=== PATIENT | female | born 1940 | race Caucasian/White ===

== ENCOUNTER 2025-02-13 20:01 | Inpatient (IN) | payer MEDICARE ==
[~2025-02-13] VITALS: Ht 170.2 cm; Wt 73.9 kg
[~2025-02-13 20:01] MED LIST: NITR100C15 PO
[2025-02-13] MEDS ORDERED: VANCOMYCIN 1 GM /D5W 250 ML PB IV ONE (20:18)
[2025-02-13] MEDS ORDERED: PIPERACI/TAZO 3.375GM/D5W 50ML PB IV ONE (20:19)
[2025-02-13 20:23] LABS: BASOPHILS % (AUTO) 0.1 % (0.0-2.0); HEMATOCRIT 43 % (33-45); HEMOGLOBIN 13.1 g/dL (11.5-14.8); LYMPHOCYTES # (AUTO) 1.1 K/uL (0.8-4.8); MEAN CORPUSCULAR HEMOGLOBIN 30 PG (26.0-33.0); MEAN CORPUSCULAR HGB CONC 30 g/dl (31.0-36.0); MEAN CORPUSCULAR VOLUME 98 fL (82-100); MONOCYTES # (AUTO) 1.2 K/uL (0.1-1.30); MONOCYTES % (AUTO) 6.5 % (2.0-12.0); NEUTROPHILS # (AUTO) 15.9 K/uL (1.8-8.9); NEUTROPHILS % (AUTO) 87.4 % (43.0-81.0); PLATELET COUNT (AUTO) 326 K/uL (150-450); RED BLOOD CELL COUNT(AUTO) 4.44 MIL/uL (4.0-5.2); RED CELL DISTRIBUTION WIDTH 18.2 % (11.5-15.0); WHITE BLOOD COUNT (AUTO) 18.2 K/uL (4.3-11.0)
[2025-02-13 20:32] LABS: CALCIUM, SERUM 10.3 mg/dL (8.5-10.1); CARBON DIOXIDE 12 mmol/L (21-32); CHLORIDE 113 mmol/L (98-107); GLUCOSE 239 mg/dL (74-106); POTASSIUM 5.8 mmol/L (3.5-5.1); SODIUM SERUM 155 mmol/L (136-145)
[2025-02-13] MEDS: IV NS 0.9% 1,000 ML BAG IV ONE ×2 (20:34→21:07)
[2025-02-13] MEDS: PIPERACILLIN /TAZOBACTAM 3.375 G in IV D5W 50 ML IV ONE (20:35)
[2025-02-13 20:40] LABS: ALANINE AMINOTRANSFERASE 46 U/L (12-78); ALKALINE PHOSPHATASE 114 U/L (46-116); ASPARTATE AMINOTRANSFERASE 33 U/L (15-37); BILIRUBIN,DIRECT 0.2 mg/dL (0.0-0.2); BILIRUBIN,TOTAL 0.4 mg/dL (0.2-1.0); TOTAL PROTEIN, SERUM 9.1 g/dL (6.4-8.2)
[2025-02-13 20:41] LABS: INR 1.11 (0.91-1.10); PARTIAL THROMBOPLASTIN TIME 21.3 SEC (24.3-34.3); PROTHROMBIN TIME 11.7 SECS (9.2-11.1)
[2025-02-13] MEDS: VANCOMYCIN 1 GM in IV D5W 250 ML IV ONE (20:45)
[2025-02-13 21:04] LABS: CREATININE 9.8 mg/dL (0.6-1.3)
[2025-02-13 21:09] LABS: UREA NITROGEN, BLOOD 209 mg/dL (7-18)
[2025-02-13 21:41] LABS: ABG BASE EXCESS -17.2 mmol/L (-2.0-3.0); ABG OXYGEN SATURATION 99.4 % (94.0-98.0); ABG PH 7.222 (7.350-7.450); ABG PO2 551.6 mmHg (83.0-108.0); ABG TOTAL HEMOGLOBIN 8.7 G/dL (12.0-16.0); COHb 0.1 % (0.5-1.5); MetHb 0.6 % (0.0-1.5); O2Hb 98.7 % (94.0-97.0); VT, ABG 450 mL
[2025-02-13] MEDS: ACETAMINOPHEN 650 MG/SUPP.RECT RC ONE (22:11)
[2025-02-13] MEDS ORDERED: ACETAMINOPHEN 650 MG/SUPP.RECT RC PRN (22:30)
[2025-02-13] MEDS ORDERED: Z GUARD REMEDY 4 OZ OINT TP PRN (22:30)
[2025-02-13] MEDS ORDERED: ONDANSETRON HCL/PF 4 MG/2 ML VIAL IVP PRN (22:30)
[2025-02-13 23:11] LABS: APPEARANCE,URINE CLOUDY (CLEAR); BILIRUBIN,URINE 1+ (NEGATIVE); BLOOD, URINE 3+ Ery/uL (NEGATIVE); COLOR,URINE DARK YELLOW (YELLOW); KETONES,URINE NEGATIVE (NEGATIVE); LEUKOCYTE ESTERASE ,URINE 2+ (NEGATIVE); NITRITE, URINE POSITIVE (NEGATIVE); PROTEIN,URINE 3+ mg/dl (NEGATIVE); UGLUCOSE TRACE mg/dL (NEGATIVE); UROBILINOGEN,URINE 0.2 EU/dL (0.2)
[2025-02-13 23:22] LABS: ADD URINE CULTURE YES; BACTERIA,URINE Moderate /HPF (None Seen); WBC,URINE TOO NUMEROUS TO COUN /HPF (0-3)
[2025-02-13 23:24] LABS: RBC,URINE 21-50 /HPF (0-2); SQUAMOUS EPITHELIAL CELL,UR Few /HPF (None Seen); YEAST,URINE Few /HPF (None Seen)
[2025-02-13 23:36] LABS: CALCIUM, SERUM 8.7 mg/dL (8.5-10.1); CHLORIDE 119 mmol/L (98-107); GLUCOSE 195 mg/dL (74-106); POTASSIUM 5.9 mmol/L (3.5-5.1); SODIUM SERUM 152 mmol/L (136-145)
[2025-02-14] VITALS (99 sets, daily range): BP systolic 71–143; BP diastolic 37–71; TEMP 96.5–98.3; O2SAT 92–100
[2025-02-14] MEDS: SODIUM BICARBONATE SYR 50 MEQ/50 ML DISP.SYRIN ONE ×2 (00:08→03:11)
[2025-02-14 00:13] LABS: CARBON DIOXIDE 7 mmol/L (21-32); CREATININE 8.8 mg/dL (0.6-1.3); UREA NITROGEN, BLOOD 172 mg/dL (7-18)
[2025-02-14] MEDS: Sodium Bicarbonate 100 MEQ in IV D5/0.45 NACL 1,000 ML IV PRN (00:47)
[2025-02-14] MEDS: IV NS 0.9% 250 ML IV PRN (00:53)
[2025-02-14] MEDS: MEROPENEM 1 G in IV NS 0.9% 100 ML IV ONE (00:56)
[2025-02-14] MEDS: PROPOFOL 100 ML IV PRN (01:00)
[2025-02-14] MEDS: MEROPENEM 500MG/NS 50 ML PB IV ONE (01:11)
[2025-02-14] MEDS: CALCIUM CHLORIDE 1,000 MG/10 ML DISP.SYRIN IV ONE (03:07)
[2025-02-14] MEDS: DEXTROSE 50%-WATER 50 ML DISP.SYRIN IV ONE (03:08)
[2025-02-14] MEDS: INSULIN REGULAR, HUMAN 100 UNIT/ML 10 ML VIAL IV ONE (03:10)
[2025-02-14] MEDS: SODIUM BICARBONATE SYR 50 MEQ/50 ML DISP.SYRIN IV ONE (03:11)
[2025-02-14] MEDS: SODIUM ZIRCONIUM CYCLOSILICATE 5 GM POWD.PACK ONE (03:11)
[2025-02-14] MEDS: SODIUM ZIRCONIUM CYCLOSILICATE 5 GM POWD.PACK NG ONE (03:12)
[2025-02-14] MEDS: DEXTROSE 50%-WATER 50 ML DISP.SYRIN ONE (03:15)
[2025-02-14 06:18] LABS: ABG BASE EXCESS -6.3 mmol/L (-2.0-3.0); ABG OXYGEN SATURATION 96.4 % (94.0-98.0); ABG PCO2 25.8 mmHg (32.0-45.0); ABG PH 7.429 (7.350-7.450); ABG PO2 88.9 mmHg (83.0-108.0); ABG TOTAL HEMOGLOBIN 10.8 G/dL (12.0-16.0); COHb 0.3 % (0.5-1.5); MetHb 0.3 % (0.0-1.5); O2Hb 95.8 % (94.0-97.0); PEEP,BG 5 cm H2O; SITE, ABG LEFT RADIAL; VT, ABG 450 mL
[2025-02-14 07:16] LABS: BASOPHILS # (AUTO) 0.1 K/uL (0.0-0.2); BASOPHILS % (AUTO) 0.3 % (0.0-2.0); HEMATOCRIT 32 % (33-45); LYMPHOCYTES # (AUTO) 1.4 K/uL (0.8-4.8); LYMPHOCYTES % (AUTO) 7.9 % (20.0-44.0); MEAN CORPUSCULAR HEMOGLOBIN 29 PG (26.0-33.0); MEAN CORPUSCULAR HGB CONC 31 g/dl (31.0-36.0); MEAN CORPUSCULAR VOLUME 93 fL (82-100); MONOCYTES # (AUTO) 0.9 K/uL (0.1-1.30); MONOCYTES % (AUTO) 4.8 % (2.0-12.0); NEUTROPHILS # (AUTO) 15.4 K/uL (1.8-8.9); PLATELET COUNT (AUTO) 211 K/uL (150-450); RED BLOOD CELL COUNT(AUTO) 3.48 MIL/uL (4.0-5.2); RED CELL DISTRIBUTION WIDTH 17.4 % (11.5-15.0); WHITE BLOOD COUNT (AUTO) 17.7 K/uL (4.3-11.0)
[2025-02-14 07:36] LABS: CALCIUM, SERUM 9.4 mg/dL (8.5-10.1); CARBON DIOXIDE 20 mmol/L (21-32); CHLORIDE 121 mmol/L (98-107); GLUCOSE 325 mg/dL (74-106); MAGNESIUM 2.4 mg/dL (1.8-2.4); PHOSPHORUS 4.8 mg/dL (2.5-4.9); POTASSIUM 3.4 mmol/L (3.5-5.1)
[2025-02-14 08:20] LABS: CREATININE 7.9 mg/dL (0.6-1.3); SODIUM SERUM 160 mmol/L (136-145); UREA NITROGEN, BLOOD 167 mg/dL (7-18)
[2025-02-14] MEDS: PANTOPRAZOLE 40 MG VIAL IV SCH ×2 (10:06→21:24)
[2025-02-14] MEDS: Sodium Bicarbonate 100 MEQ in IV D5/0.45 NACL 1,000 ML IV SCH (10:48)
[2025-02-14] MEDS: IV 1/2NS 1000 ML 1,000 ML IV PRN (11:22)
[2025-02-14] MEDS ORDERED: NOREPINEPHRINE 32 MG in IV NS 0.9% 218 ML IV PRN (11:30)
[2025-02-14] MEDS: NOREPINEPHRINE 8 MG in IV D5W 242 ML IV PRN (12:38)
[2025-02-14 13:38] LABS: URINE TOTAL PROTEIN 137.2 mg/dL (0-11.9)
[2025-02-14 13:39] LABS: APPEARANCE,URINE SLIGHTLY CLOUDY (CLEAR); BILIRUBIN,URINE NEGATIVE (NEGATIVE); BLOOD, URINE 3+ Ery/uL (NEGATIVE); COLOR,URINE YELLOW (YELLOW); KETONES,URINE NEGATIVE (NEGATIVE); LEUKOCYTE ESTERASE ,URINE 2+ (NEGATIVE); NITRITE, URINE NEGATIVE (NEGATIVE); PROTEIN,URINE 2+ mg/dl (NEGATIVE); UGLUCOSE NEGATIVE (NEGATIVE); UROBILINOGEN,URINE 0.2 EU/dL (0.2)
[2025-02-14 14:06] LABS: ADD URINE CULTURE YES; BACTERIA,URINE 1+ /HPF (None Seen); RBC,URINE 81-100 /HPF (0-2); SQUAMOUS EPITHELIAL CELL,UR 0-2 /HPF (None Seen); WBC,URINE 21-50 /HPF (0-3)
[2025-02-14 14:07] LABS: YEAST,URINE Hyphal filaments /HPF (None Seen)
[2025-02-14 14:27] LABS: EOSINOPHIL,URINE None Seen
[2025-02-14] MEDS: MEROPENEM 1 G in IV NS 0.9% 100 ML IV SCH (23:13)
[2025-02-15] VITALS (87 sets, daily range): BP systolic 94–151; BP diastolic 36–74; TEMP 96.7–98; O2SAT 81–100
[2025-02-15 05:47] LABS: BASOPHILS % (AUTO) 0.1 % (0.0-2.0); EOSINOPHILS # (AUTO) 0.1 K/uL (0.0-0.7); EOSINOPHILS % (AUTO) 0.2 % (0.0-6.0); HEMATOCRIT 27 % (33-45); HEMOGLOBIN 8.4 g/dL (11.5-14.8); LYMPHOCYTES # (AUTO) 2.3 K/uL (0.8-4.8); LYMPHOCYTES % (AUTO) 8.3 % (20.0-44.0); MEAN CORPUSCULAR HEMOGLOBIN 29 PG (26.0-33.0); MEAN CORPUSCULAR HGB CONC 32 g/dl (31.0-36.0); MEAN CORPUSCULAR VOLUME 92 fL (82-100); MONOCYTES # (AUTO) 1.5 K/uL (0.1-1.30); MONOCYTES % (AUTO) 5.6 % (2.0-12.0); NEUTROPHILS # (AUTO) 23.1 K/uL (1.8-8.9); NEUTROPHILS % (AUTO) 85.8 % (43.0-81.0); PLATELET COUNT (AUTO) 182 K/uL (150-450); RED BLOOD CELL COUNT(AUTO) 2.88 MIL/uL (4.0-5.2); RED CELL DISTRIBUTION WIDTH 17.1 % (11.5-15.0)
[2025-02-15 06:27] LABS: ALBUMIN 1.9 g/dL (3.4-5.0); BILIRUBIN,TOTAL 0.4 mg/dL (0.2-1.0); CALCIUM, SERUM 8.3 mg/dL (8.5-10.1); CREATININE 6.5 mg/dL (0.6-1.3); MAGNESIUM 1.9 mg/dL (1.8-2.4); PHOSPHORUS 4.1 mg/dL (2.5-4.9); POTASSIUM 3.1 mmol/L (3.5-5.1); TOTAL PROTEIN, SERUM 5.8 g/dL (6.4-8.2)
[2025-02-15 07:15] LABS: OCCULT BLOOD STOOL POSITIVE (NEGATIVE)
[2025-02-15] MEDS: LEVOTHYROXINE INJ 100 MCG VIAL IV SCH (08:23)
[2025-02-15] MEDS ORDERED: LEVO88TA5 PO (12:46)
[2025-02-15] MEDS ORDERED: OMEP20CA15 PO (12:46)
[2025-02-15] MEDS ORDERED: ESCI10TA PO (12:46)
[2025-02-15] MEDS ORDERED: FERR325T23 PO (12:46)
[2025-02-15] MEDS ORDERED: ATOR40TA PO (12:46)
[2025-02-15] MEDS ORDERED: GABA-532 PO (12:46)
[2025-02-15] MEDS ORDERED: CLOP75TA15 PO (12:46)
[2025-02-15] MEDS ORDERED: CALC-261 PO (12:46)
[2025-02-15] MEDS ORDERED: AMLO-212 PO (12:46)
[2025-02-15] MEDS ORDERED: MEMA10TA PO (12:46)
[2025-02-15 15:11] LABS: HIV-1 p24 ANTIGEN NON REACTIVE (NONREACTIVE); HIV-1/2 ANTIBODY NON REACTIVE (NONREACTIVE)
[2025-02-15] MEDS: MEMANTINE HCL 5 MG TABLET PO SCH (17:01)
[2025-02-15] MEDS: ALBUMIN 25% 25 GM in PREMIX 1 EA IV PRN (18:02)
[2025-02-15] MEDS ORDERED: INSULIN REGULAR, HUMAN 100 UNIT/ML 3 ML VIAL SQ PRN (19:00)
[2025-02-15] MEDS ORDERED: DEXTROSE 50%-WATER 50 ML DISP.SYRIN IV PRN (19:00)
[2025-02-15] MEDS: BLOOD SUGAR DIAGNOSTIC 1 EACH STRIP IN SCH (19:15)
[2025-02-15] MEDS: VANCOMYCIN POST DIALYSIS 500MG IV PRN (21:01)
[2025-02-15] MEDS: MUPIROCIN OINT 2% 22 GM TUBE NS SCH (21:37)
[2025-02-16] VITALS (38 sets, daily range): BP systolic 90–137; BP diastolic 36–52; TEMP 97–99.5; O2SAT 93–98
[2025-02-16] MEDS: DEXTROSE 50%-WATER 50 ML DISP.SYRIN IV PRN (03:22)
[2025-02-16] MEDS: IV D5/0.45 NACL 1,000 ML IV PRN (03:29)
[2025-02-16 04:11] LABS: HEPATITIS B SURFACE AB (QUAL) Non Reactive (.)
[2025-02-16] MEDS: BLOOD SUGAR DIAGNOSTIC 1 EACH STRIP IN SCH (06:36)
[2025-02-16 08:31] LABS: ALBUMIN 2.3 g/dL (3.4-5.0); BILIRUBIN,TOTAL 0.5 mg/dL (0.2-1.0); CALCIUM, SERUM 7.6 mg/dL (8.5-10.1); CREATININE 3.4 mg/dL (0.6-1.3); POTASSIUM 3.1 mmol/L (3.5-5.1); TOTAL PROTEIN, SERUM 5.9 g/dL (6.4-8.2)
[2025-02-16] MEDS: FERROUS SULFATE (325 MG) 325 MG/TAB TABLET PO SCH (08:32)
[2025-02-16] MEDS: CALCIUM CARB 250MG /VITAMIN D 1 UDTAB PO SCH (09:01)
[2025-02-16] MEDS: POTASSIUM CL. PREMIX PERIPHER. 50 ML IV SCH (10:25)
[2025-02-16 15:23] LABS: HEMATOCRIT 21 % (33-45); RED BLOOD CELL COUNT(AUTO) 2.34 MIL/uL (4.0-5.2); WHITE BLOOD COUNT (AUTO) 27.9 K/uL (4.3-11.0)
[2025-02-16 15:24] LABS: BASOPHILS % (AUTO) 0.3 % (0.0-2.0); EOSINOPHILS % (AUTO) 0.6 % (0.0-6.0); LYMPHOCYTES % (AUTO) 7.1 % (20.0-44.0); MEAN CORPUSCULAR HEMOGLOBIN 29 PG (26.0-33.0); MEAN CORPUSCULAR HGB CONC 32 g/dl (31.0-36.0); MEAN CORPUSCULAR VOLUME 90 fL (82-100); MONOCYTES % (AUTO) 3.2 % (2.0-12.0); NEUTROPHILS % (AUTO) 88.8 % (43.0-81.0); PLATELET COUNT (AUTO) 126 K/uL (150-450)
[2025-02-16 15:26] LABS: HEMOGLOBIN 6.7 g/dL (11.5-14.8)
[2025-02-16 16:08] LABS: PTH, INTACT 160 pg/mL (15-65)
[2025-02-16 16:25] LABS: BAND % (MANUAL) 4 % (0.0-5.0); EOSINOPHILS % (MANUAL) 0 % (0-4); LYMPHOCYTES % (MANUAL) 3 % (16-48); MONOCYTES % (MANUAL) 0 % (0-11.0); NEUTROPHILS % (MANUAL) 92 (42-76); PLATELET ESTIMATE DECREASED; REACTIVE LYMPHOCYTES 1 % (0-0)
[2025-02-16 16:26] LABS: ANISOCYTOSIS 1+
[2025-02-16] MEDS ORDERED: BLOOD SUGAR DIAGNOSTIC 1 EACH STRIP IN SCH ×2 (18:00→18:39)
[2025-02-16] MEDS: ACETAMINOPHEN 650 MG/20.3 ML UDC NG PRN (23:28)
[2025-02-17] VITALS (40 sets, daily range): BP systolic 94–203; BP diastolic 41–60; TEMP 98–101.4; O2SAT 96–100
[2025-02-17 07:20] LABS: BASOPHILS % (AUTO) 0.2 % (0.0-2.0); EOSINOPHILS # (AUTO) 0.4 K/uL (0.0-0.7); EOSINOPHILS % (AUTO) 1.6 % (0.0-6.0); HEMATOCRIT 27 % (33-45); HEMOGLOBIN 8.9 g/dL (11.5-14.8); LYMPHOCYTES # (AUTO) 1.5 K/uL (0.8-4.8); LYMPHOCYTES % (AUTO) 6.4 % (20.0-44.0); MEAN CORPUSCULAR HEMOGLOBIN 30 PG (26.0-33.0); MEAN CORPUSCULAR HGB CONC 34 g/dl (31.0-36.0); MEAN CORPUSCULAR VOLUME 90 fL (82-100); MONOCYTES # (AUTO) 0.8 K/uL (0.1-1.30); MONOCYTES % (AUTO) 3.6 % (2.0-12.0); NEUTROPHILS # (AUTO) 20.4 K/uL (1.8-8.9); NEUTROPHILS % (AUTO) 88.2 % (43.0-81.0); PLATELET COUNT (AUTO) 134 K/uL (150-450); RED BLOOD CELL COUNT(AUTO) 2.95 MIL/uL (4.0-5.2); RED CELL DISTRIBUTION WIDTH 15.5 % (11.5-15.0); WHITE BLOOD COUNT (AUTO) 23.1 K/uL (4.3-11.0)
[2025-02-17 07:58] LABS: ALBUMIN 1.9 g/dL (3.4-5.0); BILIRUBIN,TOTAL 0.6 mg/dL (0.2-1.0); CALCIUM, SERUM 7.2 mg/dL (8.5-10.1); CREATININE 2.4 mg/dL (0.6-1.3); MAGNESIUM 1.5 mg/dL (1.8-2.4); PHOSPHORUS 2.6 mg/dL (2.5-4.9); TOTAL PROTEIN, SERUM 5.4 g/dL (6.4-8.2)
[2025-02-17 08:11] LABS: IRON, SERUM 8 ug/dl (50-175); TOTAL IRON BINDING CAPACITY 79 ug/dl (250-450)
[2025-02-17 08:49] LABS: FERRITIN 2771 ng/mL (8-388)
[2025-02-17] MEDS: LEVOTHYROXINE SODIUM 100 MCG TABLET PO SCH (09:05)
[2025-02-17] MEDS: MAGNESIUM OXIDE 400 MG TABLET PO ONE (09:22)
[2025-02-17] MEDS: POTASSIUM CHLORIDE 20 MEQ TAB.PRT.SR PO SCH ×2 (09:25→12:56)
[2025-02-17 10:14] LABS: LYMPHOCYTES % (MANUAL) 5 % (16-48); MONOCYTES % (MANUAL) 3 % (0-11.0); NEUTROPHILS % (MANUAL) 92 (42-76)
[2025-02-17 10:15] LABS: PLATELET ESTIMATE DECREASED
[2025-02-18] VITALS (39 sets, daily range): BP systolic 101–179; BP diastolic 37–58; TEMP 97.7–99; O2SAT 95–100
[2025-02-18 04:35] LABS: BASOPHILS % (AUTO) 0.1 % (0.0-2.0); EOSINOPHILS # (AUTO) 0.6 K/uL (0.0-0.7); EOSINOPHILS % (AUTO) 3.6 % (0.0-6.0); HEMATOCRIT 25 % (33-45); HEMOGLOBIN 8.3 g/dL (11.5-14.8); LYMPHOCYTES # (AUTO) 1.4 K/uL (0.8-4.8); LYMPHOCYTES % (AUTO) 8.2 % (20.0-44.0); MEAN CORPUSCULAR HEMOGLOBIN 30 PG (26.0-33.0); MEAN CORPUSCULAR HGB CONC 33 g/dl (31.0-36.0); MEAN CORPUSCULAR VOLUME 91 fL (82-100); MONOCYTES % (AUTO) 5.9 % (2.0-12.0); NEUTROPHILS # (AUTO) 14.3 K/uL (1.8-8.9); NEUTROPHILS % (AUTO) 82.2 % (43.0-81.0); PLATELET COUNT (AUTO) 132 K/uL (150-450); RED BLOOD CELL COUNT(AUTO) 2.78 MIL/uL (4.0-5.2); RED CELL DISTRIBUTION WIDTH 16.1 % (11.5-15.0); WHITE BLOOD COUNT (AUTO) 17.4 K/uL (4.3-11.0)
[2025-02-18 04:45] LABS: CALCIUM, SERUM 6.9 mg/dL (8.5-10.1); CARBON DIOXIDE 25 mmol/L (21-32); CHLORIDE 108 mmol/L (98-107); CREATININE 2.4 mg/dL (0.6-1.3); GLUCOSE 89 mg/dL (74-106); MAGNESIUM 1.3 mg/dL (1.8-2.4); PHOSPHORUS 2.5 mg/dL (2.5-4.9); POTASSIUM 2.9 mmol/L (3.5-5.1); SODIUM SERUM 140 mmol/L (136-145); UREA NITROGEN, BLOOD 23 mg/dL (7-18)
[2025-02-18 06:07] LABS: HEPATITIS B SURFACE AB (QUAL) Non Reactive (.)
[2025-02-18] MEDS: Magnesium 1GM/D5W 100ML PREMIX 100 ML IV SCH (08:10)
[2025-02-18 08:12] LABS: COMPLEMENT C3, SERUM 92 mg/dL (82-167); COMPLEMENT C4, SERUM 15 mg/dL (12-38)
[2025-02-18] MEDS: POTASSIUM CL. PREMIX PERIPHER. 50 ML IV SCH ×2 (08:48→18:50)
[2025-02-18 12:12] LABS: *SPE A/G RATIO 0.6 (0.7-1.7); *SPE ALBUMIN 1.9 g/dL (2.9-4.4); *SPE ALPHA-1-GLOBULIN 0.4 g/dL (0.0-0.4); *SPE ALPHA-2-GLOBULIN 1.1 g/dL (0.4-1.0); *SPE BETA GLOBULIN 0.9 g/dL (0.7-1.3); *SPE GLOBULIN, TOTAL 3.3 g/dL (2.2-3.9); *SPE M-SPIKE Not Observed g/dL (Not Observed); *SPE PROTEIN TOTAL 5.2 g/dL (6.0-8.5); *SPEGAMMA GLOBULIN 0.9 g/dL (0.4-1.8)
[2025-02-18] MEDS: VANCOMYCIN 500 MG in IV D5W 100ml IV ONE (13:42)
[2025-02-18 15:57] LABS: CALCIUM, SERUM 7.1 mg/dL (8.5-10.1); CREATININE 2.4 mg/dL (0.6-1.3); MAGNESIUM 2.7 mg/dL (1.8-2.4); POTASSIUM 3.2 mmol/L (3.5-5.1)
[2025-02-18] MEDS: LORAZEPAM INJ 2 MG/ML VIAL IV PRN (16:33)
[2025-02-18] MEDS: CEFEPIME 2 GM in IV D5W 100 ML IV SCH (16:33)
[2025-02-18 17:10] LABS: *ANA ANTI-CENTROMERE B AB <0.2 AI (0.0-0.9); *ANA ANTI-DNA(DS) AB, QN <1 IU/mL (0-9); *ANA ANTI-JO-1 <0.2 AI (0.0-0.9); *ANA ANTICHROMATIN ANTIBODY <0.2 AI (0.0-0.9); *ANA RNP ANTIBODIES <0.2 AI (0.0-0.9); *ANA SJOGREN'S ANTI-SS-A <0.2 AI (0.0-0.9); *ANA SJOGREN'S ANTI-SS-B <0.2 AI (0.0-0.9); *ANAANTI-SCLERODERMA-70 AB <0.2 AI (0.0-0.9); *ANASMITH AB <0.2 AI (0.0-0.9)
[2025-02-19] VITALS (48 sets, daily range): BP systolic 87–201; BP diastolic 40–82; TEMP 98–98.7; O2SAT 95–100
[2025-02-19 04:26] LABS: BASOPHILS # (AUTO) 0.1 K/uL (0.0-0.2); BASOPHILS % (AUTO) 0.4 % (0.0-2.0); EOSINOPHILS # (AUTO) 0.6 K/uL (0.0-0.7); EOSINOPHILS % (AUTO) 5.2 % (0.0-6.0); HEMATOCRIT 25 % (33-45); HEMOGLOBIN 8.3 g/dL (11.5-14.8); LYMPHOCYTES # (AUTO) 1.5 K/uL (0.8-4.8); LYMPHOCYTES % (AUTO) 12.7 % (20.0-44.0); MEAN CORPUSCULAR HEMOGLOBIN 30 PG (26.0-33.0); MEAN CORPUSCULAR HGB CONC 33 g/dl (31.0-36.0); MEAN CORPUSCULAR VOLUME 91 fL (82-100); MONOCYTES # (AUTO) 0.5 K/uL (0.1-1.30); MONOCYTES % (AUTO) 4.3 % (2.0-12.0); NEUTROPHILS # (AUTO) 9.4 K/uL (1.8-8.9); NEUTROPHILS % (AUTO) 77.4 % (43.0-81.0); PLATELET COUNT (AUTO) 163 K/uL (150-450); RED BLOOD CELL COUNT(AUTO) 2.79 MIL/uL (4.0-5.2); RED CELL DISTRIBUTION WIDTH 15.7 % (11.5-15.0); WHITE BLOOD COUNT (AUTO) 12.2 K/uL (4.3-11.0)
[2025-02-19 04:43] LABS: CALCIUM, SERUM 7.1 mg/dL (8.5-10.1); CREATININE 2.2 mg/dL (0.6-1.3); POTASSIUM 3.3 mmol/L (3.5-5.1)
[2025-02-19 04:44] LABS: MAGNESIUM 2.5 mg/dL (1.8-2.4); PHOSPHORUS 2.4 mg/dL (2.5-4.9)
[2025-02-19 04:50] LABS: INR 0.99 (0.91-1.10); PARTIAL THROMBOPLASTIN TIME 27.5 SEC (24.3-34.3); PROTHROMBIN TIME 10.5 SECS (9.2-11.1)
[2025-02-19] MEDS: POTASSIUM CL. PREMIX PERIPHER. 50 ML IV SCH (09:10)
[2025-02-19] MEDS: VANCOMYCIN 1 GM in IV D5W 250ml IV ONE (12:47)
[2025-02-19] MEDS: Sodium Phosphate 15 MMOL in IV NS 0.9% 245 ML IV ONE (15:55)
[2025-02-20] VITALS (36 sets, daily range): BP systolic 99–184; BP diastolic 43–129; TEMP 97.9–98.9; O2SAT 94–100
[2025-02-20 04:24] LABS: BASOPHILS # (AUTO) 0.1 K/uL (0.0-0.2); BASOPHILS % (AUTO) 0.7 % (0.0-2.0); EOSINOPHILS # (AUTO) 0.6 K/uL (0.0-0.7); EOSINOPHILS % (AUTO) 5.5 % (0.0-6.0); HEMATOCRIT 27 % (33-45); HEMOGLOBIN 8.6 g/dL (11.5-14.8); LYMPHOCYTES # (AUTO) 1.5 K/uL (0.8-4.8); LYMPHOCYTES % (AUTO) 13.4 % (20.0-44.0); MEAN CORPUSCULAR HEMOGLOBIN 29 PG (26.0-33.0); MEAN CORPUSCULAR HGB CONC 32 g/dl (31.0-36.0); MEAN CORPUSCULAR VOLUME 91 fL (82-100); MONOCYTES # (AUTO) 0.6 K/uL (0.1-1.30); NEUTROPHILS # (AUTO) 8.4 K/uL (1.8-8.9); NEUTROPHILS % (AUTO) 75.4 % (43.0-81.0); PLATELET COUNT (AUTO) 189 K/uL (150-450); RED BLOOD CELL COUNT(AUTO) 2.97 MIL/uL (4.0-5.2); RED CELL DISTRIBUTION WIDTH 15.5 % (11.5-15.0); WHITE BLOOD COUNT (AUTO) 11.1 K/uL (4.3-11.0)
[2025-02-20 04:45] LABS: ALBUMIN 1.6 g/dL (3.4-5.0); BILIRUBIN,TOTAL 0.4 mg/dL (0.2-1.0); CALCIUM, SERUM 7.2 mg/dL (8.5-10.1); CREATININE 2.1 mg/dL (0.6-1.3); MAGNESIUM 1.8 mg/dL (1.8-2.4); POTASSIUM 3.1 mmol/L (3.5-5.1); TOTAL PROTEIN, SERUM 5.2 g/dL (6.4-8.2)
[2025-02-20] MEDS: hydrALAZINE HCL IV 20 MG VIAL IV PRN (06:21)
[2025-02-20] MEDS: MIDAZOLAM HCL 2 MG/2ML VIAL IV PRN (08:44)
[2025-02-20] MEDS: FENTANYL PF 100MCG/2ML AMPUL IV PRN (08:45)
[2025-02-20] MEDS: VECURONIUM 10 MG VIAL IV PRN (08:45)
[2025-02-20] MEDS: POTASSIUM CHLORIDE 10 MEQ TABLET.SA PO ONE (09:30)
[2025-02-20] MEDS ORDERED: PHARMACY TO CHANGE PO MEDS TO GT/NG XX PRN (09:30)
[2025-02-20] MEDS: POTASSIUM CHLORIDE 20 MEQ POWDER PACKET GT ONE (09:42)
[2025-02-20] MEDS: MEMANTINE HCL 5 MG TABLET GT SCH (16:41)
[2025-02-20] MEDS: GLUCERNA 1.2 1,000 ML BOTTLE NG PRN (16:53)
[2025-02-20] MEDS ORDERED: DEXTROSE 50%-WATER 50 ML DISP.SYRIN IV PRN (21:00)
[2025-02-20] MEDS: BLOOD SUGAR DIAGNOSTIC 1 EACH STRIP IN SCH (23:38)
[2025-02-20] MEDS: INSULIN REGULAR, HUMAN 100 UNIT/ML 3 ML VIAL SQ PRN (23:38)
[2025-02-21] VITALS (16 sets, daily range): BP systolic 117–187; BP diastolic 42–109; TEMP 98–99.3; O2SAT 96–99
[2025-02-21 04:17] LABS: BASOPHILS # (AUTO) 0.1 K/uL (0.0-0.2); BASOPHILS % (AUTO) 0.5 % (0.0-2.0); EOSINOPHILS # (AUTO) 0.6 K/uL (0.0-0.7); EOSINOPHILS % (AUTO) 3.8 % (0.0-6.0); HEMATOCRIT 27 % (33-45); HEMOGLOBIN 8.8 g/dL (11.5-14.8); LYMPHOCYTES # (AUTO) 1.5 K/uL (0.8-4.8); MEAN CORPUSCULAR HEMOGLOBIN 30 PG (26.0-33.0); MEAN CORPUSCULAR HGB CONC 33 g/dl (31.0-36.0); MEAN CORPUSCULAR VOLUME 91 fL (82-100); MONOCYTES # (AUTO) 0.7 K/uL (0.1-1.30); MONOCYTES % (AUTO) 4.4 % (2.0-12.0); NEUTROPHILS % (AUTO) 81.3 % (43.0-81.0); PLATELET COUNT (AUTO) 219 K/uL (150-450); RED BLOOD CELL COUNT(AUTO) 2.97 MIL/uL (4.0-5.2); RED CELL DISTRIBUTION WIDTH 15.9 % (11.5-15.0); WHITE BLOOD COUNT (AUTO) 14.8 K/uL (4.3-11.0)
[2025-02-21 04:37] LABS: CALCIUM, SERUM 7.4 mg/dL (8.5-10.1); CREATININE 2.1 mg/dL (0.6-1.3); MAGNESIUM 1.7 mg/dL (1.8-2.4); PHOSPHORUS 3.8 mg/dL (2.5-4.9); POTASSIUM 3.3 mmol/L (3.5-5.1)
[2025-02-21] MEDS: LEVOTHYROXINE SODIUM 100 MCG TABLET GT SCH (08:38)
[2025-02-21] MEDS: CALCIUM CARB 250MG /VITAMIN D 1 UDTAB GT SCH (08:39)
[2025-02-21] MEDS: FERROUS SULFATE (325 MG) 325 MG/TAB TABLET GT SCH (08:39)
[2025-02-21] MEDS: PANTOPRAZOLE 40 MG/PACK PACK GT SCH (08:39)
[2025-02-21] MEDS: POTASSIUM CHLORIDE 20 MEQ POWDER PACKET GT ONE (09:34)
[2025-02-21] MEDS: MAGNESIUM OXIDE 400 MG TABLET GT ONE (09:34)
[2025-02-22] VITALS: BP 163/66; TEMP 99; O2SAT 99
[2025-02-22 04:00] VITALS: BP 163/63; TEMP 98.4; O2SAT 99
[2025-02-22 06:55] LABS: CALCIUM, SERUM 7.8 mg/dL (8.5-10.1); CREATININE 1.9 mg/dL (0.6-1.3); MAGNESIUM 1.5 mg/dL (1.8-2.4); POTASSIUM 3.4 mmol/L (3.5-5.1)
[2025-02-22 07:23] LABS: BASOPHILS # (AUTO) 0.1 K/uL (0.0-0.2); BASOPHILS % (AUTO) 0.7 % (0.0-2.0); EOSINOPHILS # (AUTO) 0.5 K/uL (0.0-0.7); EOSINOPHILS % (AUTO) 3.8 % (0.0-6.0); HEMATOCRIT 24 % (33-45); LYMPHOCYTES # (AUTO) 1.3 K/uL (0.8-4.8); LYMPHOCYTES % (AUTO) 10.3 % (20.0-44.0); MEAN CORPUSCULAR HEMOGLOBIN 30 PG (26.0-33.0); MEAN CORPUSCULAR HGB CONC 33 g/dl (31.0-36.0); MEAN CORPUSCULAR VOLUME 91 fL (82-100); MONOCYTES # (AUTO) 0.6 K/uL (0.1-1.30); MONOCYTES % (AUTO) 4.7 % (2.0-12.0); NEUTROPHILS # (AUTO) 10.1 K/uL (1.8-8.9); NEUTROPHILS % (AUTO) 80.5 % (43.0-81.0); PLATELET COUNT (AUTO) 226 K/uL (150-450); RED BLOOD CELL COUNT(AUTO) 2.67 MIL/uL (4.0-5.2); RED CELL DISTRIBUTION WIDTH 15.6 % (11.5-15.0); WHITE BLOOD COUNT (AUTO) 12.6 K/uL (4.3-11.0)
[2025-02-22 08:00] VITALS: BP 138/54; TEMP 99; O2SAT 99
[2025-02-22] MEDS: POTASSIUM CHLORIDE 20 MEQ POWDER PACKET GT ONE (09:33)
[2025-02-22] MEDS: MAGNESIUM OXIDE 400 MG TABLET GT ONE (09:34)
[2025-02-22 12:00] VITALS: BP 124/59; TEMP 98.8; O2SAT 99
[2025-02-22 16:00] VITALS: BP 143/59; TEMP 98.6; O2SAT 98
[2025-02-22 20:00] VITALS: BP 159/58; TEMP 97.9; O2SAT 98
[2025-02-23] VITALS (48 sets, daily range): BP systolic 84–170; BP diastolic 35–81; TEMP 97.2–99.2; O2SAT 88–100
[2025-02-23 07:47] LABS: BASOPHILS # (AUTO) 0.1 K/uL (0.0-0.2); BASOPHILS % (AUTO) 0.9 % (0.0-2.0); EOSINOPHILS # (AUTO) 0.3 K/uL (0.0-0.7); EOSINOPHILS % (AUTO) 2.5 % (0.0-6.0); HEMATOCRIT 22 % (33-45); LYMPHOCYTES # (AUTO) 1.6 K/uL (0.8-4.8); LYMPHOCYTES % (AUTO) 12.8 % (20.0-44.0); MEAN CORPUSCULAR HEMOGLOBIN 30 PG (26.0-33.0); MEAN CORPUSCULAR HGB CONC 33 g/dl (31.0-36.0); MEAN CORPUSCULAR VOLUME 91 fL (82-100); MONOCYTES # (AUTO) 0.6 K/uL (0.1-1.30); MONOCYTES % (AUTO) 4.4 % (2.0-12.0); NEUTROPHILS % (AUTO) 79.4 % (43.0-81.0); PLATELET COUNT (AUTO) 239 K/uL (150-450); RED BLOOD CELL COUNT(AUTO) 2.37 MIL/uL (4.0-5.2); RED CELL DISTRIBUTION WIDTH 15.6 % (11.5-15.0); WHITE BLOOD COUNT (AUTO) 12.6 K/uL (4.3-11.0)
[2025-02-23 08:01] LABS: CALCIUM, SERUM 7.8 mg/dL (8.5-10.1); CREATININE 1.7 mg/dL (0.6-1.3); MAGNESIUM 1.5 mg/dL (1.8-2.4); PHOSPHORUS 4.3 mg/dL (2.5-4.9); POTASSIUM 3.7 mmol/L (3.5-5.1)
[2025-02-23 08:17] LABS: HEMOGLOBIN 7.1 g/dL (11.5-14.8)
[2025-02-23 09:31] LABS: THYROID STIMULATING HORMONE 38.39 uIU/mL (0.358-3.74)
[2025-02-23] MEDS: MAGNESIUM OXIDE 400 MG TABLET GT ONE (09:40)
[2025-02-23] MEDS: SODIUM BICARBONATE SYR 50 MEQ/50 ML DISP.SYRIN IV ONE ×2 (09:42→10:33)
[2025-02-23] MEDS ORDERED: Sodium Bicarbonate 100 MEQ in IV D5W 1,000 ML IV PRN (10:00)
[2025-02-23] MEDS: IV NS 0.9% 1,000 ML BAG IV ONE (10:29)
[2025-02-23] MEDS ORDERED: VANCOMYCIN POST DIALYSIS 500MG IV PRN (10:30)
[2025-02-23] MEDS: VANCOMYCIN 1 GM in IV D5W 250 ML IV ONE (10:32)
[2025-02-23] MEDS: Sodium Bicarbonate 150 MEQ in IV D5W 1,000 ML IV SCH (11:04)
[2025-02-23] MEDS: NOREPINEPHRINE 8 MG in IV D5W 242 ML IV PRN (11:06)
[2025-02-23 11:18] LABS: BASOPHILS # (AUTO) 0.1 K/uL (0.0-0.2); BASOPHILS % (AUTO) 0.7 % (0.0-2.0); EOSINOPHILS # (AUTO) 0.2 K/uL (0.0-0.7); EOSINOPHILS % (AUTO) 1.5 % (0.0-6.0); LYMPHOCYTES # (AUTO) 1.3 K/uL (0.8-4.8); LYMPHOCYTES % (AUTO) 12.4 % (20.0-44.0); MEAN CORPUSCULAR HEMOGLOBIN 30 PG (26.0-33.0); MEAN CORPUSCULAR HGB CONC 31 g/dl (31.0-36.0); MEAN CORPUSCULAR VOLUME 96 fL (82-100); MONOCYTES # (AUTO) 0.5 K/uL (0.1-1.30); MONOCYTES % (AUTO) 4.7 % (2.0-12.0); NEUTROPHILS # (AUTO) 8.7 K/uL (1.8-8.9); NEUTROPHILS % (AUTO) 80.7 % (43.0-81.0); PLATELET COUNT (AUTO) 218 K/uL (150-450); RED CELL DISTRIBUTION WIDTH 16.2 % (11.5-15.0); WHITE BLOOD COUNT (AUTO) 10.7 K/uL (4.3-11.0)
[2025-02-23 11:28] LABS: LACTIC ACID 9.1 mmol/L (0.4-2.0)
[2025-02-23 11:32] LABS: RED BLOOD CELL COUNT(AUTO) 1.74 MIL/uL (4.0-5.2)
[2025-02-23 11:33] LABS: HEMATOCRIT 17 % (33-45); HEMOGLOBIN 5.2 g/dL (11.5-14.8)
[2025-02-23 12:23] LABS: ABG BASE EXCESS -6.4 mmol/L (-2.0-3.0); ABG OXYGEN SATURATION 99.1 % (94.0-98.0); ABG PCO2 21.8 mmHg (32.0-45.0); ABG PH 7.495 (7.350-7.450); ABG PO2 448.7 mmHg (83.0-108.0); ABG TOTAL HEMOGLOBIN 5.4 G/dL (12.0-16.0); COHb 0.3 % (0.5-1.5); MetHb 0.5 % (0.0-1.5); O2Hb 98.3 % (94.0-97.0); SITE, ABG RIGHT BRACHIAL; VT, ABG 475 mL
[2025-02-23 12:25] LABS: ABG BASE EXCESS -21.4 mmol/L (-2.0-3.0); ABG OXYGEN SATURATION 84.9 % (94.0-98.0); ABG PCO2 23.5 mmHg (32.0-45.0); ABG PH 7.077 (7.350-7.450); ABG PO2 69.3 mmHg (83.0-108.0); ABG TOTAL HEMOGLOBIN 6.5 G/dL (12.0-16.0); MetHb 0.1 % (0.0-1.5); O2Hb 84.8 % (94.0-97.0); PEEP,BG 0 cm H2O; SITE, ABG RIGHT BRACHIAL; VT, ABG 450 mL
[2025-02-23] MEDS: LEVOTHYROXINE INJ 100 MCG VIAL IV SCH (12:34)
[2025-02-23] MEDS: PANTOPRAZOLE 40 MG VIAL IV SCH (12:34)
[2025-02-23] MEDS: NOREPINEPHRINE 8 MG in IV D5W 250ML IV PRN (12:44)
[2025-02-23 14:22] LABS: ANISOCYTOSIS 1+; LYMPHOCYTES % (MANUAL) 14 % (16-48); MONOCYTES % (MANUAL) 7 % (0-11.0); NEUTROPHILS % (MANUAL) 79 (42-76); PLATELET ESTIMATE ADEQUATE
[2025-02-23] MEDS: MEROPENEM 1 G in IV NS 0.9% 100 ML IV SCH (17:21)
[2025-02-23 18:06] LABS: BILIRUBIN,DIRECT 0.1 mg/dL (0.0-0.2); BILIRUBIN,TOTAL 0.5 mg/dL (0.2-1.0)
[2025-02-23 18:10] LABS: BASOPHILS # (AUTO) 0.1 K/uL (0.0-0.2); BASOPHILS % (AUTO) 0.6 % (0.0-2.0); EOSINOPHILS % (AUTO) 0.2 % (0.0-6.0); LYMPHOCYTES # (AUTO) 1.5 K/uL (0.8-4.8); LYMPHOCYTES % (AUTO) 9.9 % (20.0-44.0); MEAN CORPUSCULAR HEMOGLOBIN 31 PG (26.0-33.0); MEAN CORPUSCULAR HGB CONC 34 g/dl (31.0-36.0); MEAN CORPUSCULAR VOLUME 90 fL (82-100); MONOCYTES # (AUTO) 0.6 K/uL (0.1-1.30); MONOCYTES % (AUTO) 3.8 % (2.0-12.0); NEUTROPHILS # (AUTO) 12.6 K/uL (1.8-8.9); NEUTROPHILS % (AUTO) 85.5 % (43.0-81.0); RED BLOOD CELL COUNT(AUTO) 3.17 MIL/uL (4.0-5.2); RED CELL DISTRIBUTION WIDTH 14.3 % (11.5-15.0); WHITE BLOOD COUNT (AUTO) 14.7 K/uL (4.3-11.0)
[2025-02-23 18:21] LABS: HEMATOCRIT 29 % (33-45); HEMOGLOBIN 9.7 g/dL (11.5-14.8)
[2025-02-23 18:22] LABS: PLATELET COUNT (AUTO) 144 K/uL (150-450)
[2025-02-23 18:23] LABS: INR 1.14 (0.91-1.10)
[2025-02-23 22:50] LABS: BASOPHILS # (AUTO) 0.1 K/uL (0.0-0.2); BASOPHILS % (AUTO) 0.8 % (0.0-2.0); EOSINOPHILS # (AUTO) 0.1 K/uL (0.0-0.7); HEMATOCRIT 27 % (33-45); LYMPHOCYTES # (AUTO) 1.8 K/uL (0.8-4.8); LYMPHOCYTES % (AUTO) 14.2 % (20.0-44.0); MEAN CORPUSCULAR HEMOGLOBIN 30 PG (26.0-33.0); MEAN CORPUSCULAR HGB CONC 34 g/dl (31.0-36.0); MEAN CORPUSCULAR VOLUME 89 fL (82-100); MONOCYTES # (AUTO) 0.6 K/uL (0.1-1.30); MONOCYTES % (AUTO) 5.1 % (2.0-12.0); NEUTROPHILS # (AUTO) 9.8 K/uL (1.8-8.9); NEUTROPHILS % (AUTO) 78.9 % (43.0-81.0); PLATELET COUNT (AUTO) 156 K/uL (150-450); RED BLOOD CELL COUNT(AUTO) 2.98 MIL/uL (4.0-5.2); RED CELL DISTRIBUTION WIDTH 14.3 % (11.5-15.0); WHITE BLOOD COUNT (AUTO) 12.4 K/uL (4.3-11.0)
[2025-02-24] VITALS (34 sets, daily range): BP systolic 94–167; BP diastolic 41–63; TEMP 98.8–100; O2SAT 97–100
[2025-02-24 04:04] LABS: BASOPHILS # (AUTO) 0.1 K/uL (0.0-0.2); BASOPHILS % (AUTO) 0.6 % (0.0-2.0); EOSINOPHILS # (AUTO) 0.2 K/uL (0.0-0.7); EOSINOPHILS % (AUTO) 1.6 % (0.0-6.0); HEMATOCRIT 27 % (33-45); HEMOGLOBIN 9.2 g/dL (11.5-14.8); LYMPHOCYTES # (AUTO) 1.8 K/uL (0.8-4.8); LYMPHOCYTES % (AUTO) 12.9 % (20.0-44.0); MEAN CORPUSCULAR HEMOGLOBIN 31 PG (26.0-33.0); MEAN CORPUSCULAR HGB CONC 34 g/dl (31.0-36.0); MEAN CORPUSCULAR VOLUME 89 fL (82-100); MONOCYTES # (AUTO) 0.7 K/uL (0.1-1.30); MONOCYTES % (AUTO) 4.7 % (2.0-12.0); NEUTROPHILS # (AUTO) 11.3 K/uL (1.8-8.9); NEUTROPHILS % (AUTO) 80.2 % (43.0-81.0); PLATELET COUNT (AUTO) 156 K/uL (150-450); RED BLOOD CELL COUNT(AUTO) 3.02 MIL/uL (4.0-5.2); RED CELL DISTRIBUTION WIDTH 14.4 % (11.5-15.0)
[2025-02-24 04:21] LABS: CALCIUM, SERUM 7.1 mg/dL (8.5-10.1); CREATININE 1.8 mg/dL (0.6-1.3); INR 1.16 (0.91-1.10); MAGNESIUM 1.4 mg/dL (1.8-2.4); PARTIAL THROMBOPLASTIN TIME 28.2 SEC (24.3-34.3); PHOSPHORUS 3.2 mg/dL (2.5-4.9); PROTHROMBIN TIME 12.2 SECS (9.2-11.1)
[2025-02-24] MEDS ORDERED: LEVOTHYROXINE SODIUM 75 MCG TABLET GT SCH (07:30)
[2025-02-24 08:15] LABS: ABG BASE EXCESS 3.6 mmol/L (-2.0-3.0); ABG OXYGEN SATURATION 97.5 % (94.0-98.0); ABG PCO2 28.2 mmHg (32.0-45.0); ABG PH 7.571 (7.350-7.450); ABG PO2 106.9 mmHg (83.0-108.0); ABG TOTAL HEMOGLOBIN 9.5 G/dL (12.0-16.0); COHb 0.2 % (0.5-1.5); MetHb 0.2 % (0.0-1.5); O2Hb 97.1 % (94.0-97.0); PEEP,BG 0 cm H2O; SITE, ABG RIGHT RADIAL; VT, ABG 450 mL
[2025-02-24] MEDS: IV D5/ 0.9% NACL 1,000 ML IV PRN (08:44)
[2025-02-24] MEDS: PANTOPRAZOLE 40 MG VIAL IV SCH (09:40)
[2025-02-24] MEDS ORDERED: ANESTHESIA TRAY IN PYXIS 1 EA TRAY MC ONE (09:55)
[2025-02-24] MEDS: POTASSIUM CL. PREMIX PERIPHER. 50 ML IV SCH (11:12)
[2025-02-24] MEDS: Magnesium 1GM/D5W 100ML PREMIX 100 ML IV SCH (11:13)
[2025-02-24] MEDS: PEG 3350/NA SULF,BICARB,CL/KCL 4,000 ML BOTTLE PO ONE (12:01)
[2025-02-24] MEDS ORDERED: INSULIN REGULAR, HUMAN 100 UNIT in IV NS 0.9% 99 ML IV PRN (15:30)
[2025-02-24] MEDS: MEMANTINE HCL 5 MG TABLET GT SCH (20:19)
[2025-02-24] MEDS: IV D5/0.45 NACL 1,000 ML IV PRN (23:04)
[2025-02-25] VITALS (31 sets, daily range): BP systolic 102–168; BP diastolic 30–92; TEMP 98.1–99; O2SAT 95–100
[2025-02-25 04:49] LABS: CALCIUM, SERUM 7.1 mg/dL (8.5-10.1); CREATININE 1.8 mg/dL (0.6-1.3); MAGNESIUM 1.7 mg/dL (1.8-2.4); PHOSPHORUS 2.6 mg/dL (2.5-4.9); POTASSIUM 3.3 mmol/L (3.5-5.1)
[2025-02-25 04:57] LABS: INR 1.1 (0.91-1.10); PARTIAL THROMBOPLASTIN TIME 21.7 SEC (24.3-34.3); PROTHROMBIN TIME 11.6 SECS (9.2-11.1)
[2025-02-25 05:11] LABS: BASOPHILS # (AUTO) 0.1 K/uL (0.0-0.2); BASOPHILS % (AUTO) 0.9 % (0.0-2.0); EOSINOPHILS # (AUTO) 0.3 K/uL (0.0-0.7); EOSINOPHILS % (AUTO) 3.4 % (0.0-6.0); HEMATOCRIT 22 % (33-45); HEMOGLOBIN 7.5 g/dL (11.5-14.8); LYMPHOCYTES # (AUTO) 1.4 K/uL (0.8-4.8); MEAN CORPUSCULAR HEMOGLOBIN 31 PG (26.0-33.0); MEAN CORPUSCULAR HGB CONC 34 g/dl (31.0-36.0); MEAN CORPUSCULAR VOLUME 90 fL (82-100); MONOCYTES # (AUTO) 0.4 K/uL (0.1-1.30); MONOCYTES % (AUTO) 5.1 % (2.0-12.0); NEUTROPHILS # (AUTO) 6.1 K/uL (1.8-8.9); NEUTROPHILS % (AUTO) 73.6 % (43.0-81.0); PLATELET COUNT (AUTO) 136 K/uL (150-450); RED BLOOD CELL COUNT(AUTO) 2.47 MIL/uL (4.0-5.2); RED CELL DISTRIBUTION WIDTH 14.5 % (11.5-15.0); WHITE BLOOD COUNT (AUTO) 8.2 K/uL (4.3-11.0)
[2025-02-25] MEDS: Magnesium 1GM/D5W 100ML PREMIX 100 ML IV SCH (11:52)
[2025-02-25] MEDS: POTASSIUM CL. PREMIX PERIPHER. 50 ML IV SCH (11:52)
[2025-02-25] MEDS: VANCOMYCIN 1 GM in IV D5W 250 ML IV SCH (16:34)
[2025-02-26] VITALS (22 sets, daily range): BP systolic 127–167; BP diastolic 47–66; TEMP 98.2–99; O2SAT 97–99
[2025-02-26 04:41] LABS: BASOPHILS # (AUTO) 0.1 K/uL (0.0-0.2); BASOPHILS % (AUTO) 1.1 % (0.0-2.0); EOSINOPHILS # (AUTO) 0.4 K/uL (0.0-0.7); EOSINOPHILS % (AUTO) 4.8 % (0.0-6.0); HEMATOCRIT 24 % (33-45); HEMOGLOBIN 8.1 g/dL (11.5-14.8); LYMPHOCYTES # (AUTO) 1.4 K/uL (0.8-4.8); LYMPHOCYTES % (AUTO) 19.5 % (20.0-44.0); MEAN CORPUSCULAR HEMOGLOBIN 30 PG (26.0-33.0); MEAN CORPUSCULAR HGB CONC 33 g/dl (31.0-36.0); MEAN CORPUSCULAR VOLUME 90 fL (82-100); MONOCYTES # (AUTO) 0.4 K/uL (0.1-1.30); MONOCYTES % (AUTO) 5.4 % (2.0-12.0); NEUTROPHILS # (AUTO) 5.1 K/uL (1.8-8.9); NEUTROPHILS % (AUTO) 69.2 % (43.0-81.0); PLATELET COUNT (AUTO) 143 K/uL (150-450); RED CELL DISTRIBUTION WIDTH 14.4 % (11.5-15.0); WHITE BLOOD COUNT (AUTO) 7.4 K/uL (4.3-11.0)
[2025-02-26 04:50] LABS: CALCIUM, SERUM 7.4 mg/dL (8.5-10.1); CREATININE 1.5 mg/dL (0.6-1.3); MAGNESIUM 1.8 mg/dL (1.8-2.4); POTASSIUM 2.9 mmol/L (3.5-5.1)
[2025-02-26] MEDS: POTASSIUM CL. PREMIX PERIPHER. 50 ML IV SCH (07:16)
[2025-02-26] MEDS: NEOMY SULF/BACITRAC ZN/POLY 15 GM TUBE TP SCH (10:17)
[2025-02-26] MEDS: THERAHONEY GEL 1.5 OZ TUBE TP SCH (10:18)
[2025-02-27] VITALS: BP 120/67; TEMP 99.8; O2SAT 98
[2025-02-27 04:00] VITALS: BP 113/70; TEMP 98.8; O2SAT 98
[2025-02-27 06:42] LABS: BASOPHILS # (AUTO) 0.1 K/uL (0.0-0.2); EOSINOPHILS # (AUTO) 0.3 K/uL (0.0-0.7); EOSINOPHILS % (AUTO) 4.1 % (0.0-6.0); HEMATOCRIT 24 % (33-45); HEMOGLOBIN 7.9 g/dL (11.5-14.8); LYMPHOCYTES # (AUTO) 1.3 K/uL (0.8-4.8); LYMPHOCYTES % (AUTO) 20.6 % (20.0-44.0); MEAN CORPUSCULAR HEMOGLOBIN 31 PG (26.0-33.0); MEAN CORPUSCULAR HGB CONC 33 g/dl (31.0-36.0); MEAN CORPUSCULAR VOLUME 93 fL (82-100); MONOCYTES # (AUTO) 0.4 K/uL (0.1-1.30); MONOCYTES % (AUTO) 5.5 % (2.0-12.0); NEUTROPHILS # (AUTO) 4.5 K/uL (1.8-8.9); NEUTROPHILS % (AUTO) 68.8 % (43.0-81.0); PLATELET COUNT (AUTO) 127 K/uL (150-450); RED BLOOD CELL COUNT(AUTO) 2.58 MIL/uL (4.0-5.2); RED CELL DISTRIBUTION WIDTH 14.5 % (11.5-15.0); WHITE BLOOD COUNT (AUTO) 6.5 K/uL (4.3-11.0)
[2025-02-27 07:02] LABS: BILIRUBIN,TOTAL 0.3 mg/dL (0.2-1.0); CALCIUM, SERUM 7.3 mg/dL (8.5-10.1); CREATININE 1.6 mg/dL (0.6-1.3); MAGNESIUM 1.6 mg/dL (1.8-2.4); PHOSPHORUS 2.8 mg/dL (2.5-4.9); POTASSIUM 3.5 mmol/L (3.5-5.1); TOTAL PROTEIN, SERUM 4.4 g/dL (6.4-8.2)
[2025-02-27 07:20] LABS: ALBUMIN 1.2 g/dL (3.4-5.0)
[2025-02-27 08:00] VITALS: BP 139/54; TEMP 98.2; O2SAT 97
[2025-02-27] MEDS: PANTOPRAZOLE 40 MG/PACK PACK GT SCH (08:39)
[2025-02-27] MEDS: MAGNESIUM OXIDE 400 MG TABLET GT ONE (10:27)
[2025-02-27 12:00] VITALS: BP 154/60; TEMP 98.4; O2SAT 98
[2025-02-27 16:00] VITALS: BP 142/64; TEMP 99.9; O2SAT 96
[2025-02-27 20:00] VITALS: BP 115/57; TEMP 100; O2SAT 96
[2025-02-28] VITALS: BP 155/51; TEMP 98.9; O2SAT 99
[2025-02-28 04:00] VITALS: BP 162/61; TEMP 98.1; O2SAT 98
[2025-02-28 06:19] LABS: BASOPHILS # (AUTO) 0.1 K/uL (0.0-0.2); BASOPHILS % (AUTO) 0.8 % (0.0-2.0); EOSINOPHILS # (AUTO) 0.3 K/uL (0.0-0.7); EOSINOPHILS % (AUTO) 3.6 % (0.0-6.0); HEMATOCRIT 25 % (33-45); HEMOGLOBIN 8.2 g/dL (11.5-14.8); LYMPHOCYTES # (AUTO) 1.3 K/uL (0.8-4.8); LYMPHOCYTES % (AUTO) 18.4 % (20.0-44.0); MEAN CORPUSCULAR HEMOGLOBIN 31 PG (26.0-33.0); MEAN CORPUSCULAR HGB CONC 33 g/dl (31.0-36.0); MEAN CORPUSCULAR VOLUME 95 fL (82-100); MONOCYTES # (AUTO) 0.4 K/uL (0.1-1.30); MONOCYTES % (AUTO) 6.2 % (2.0-12.0); PLATELET COUNT (AUTO) 128 K/uL (150-450); RED BLOOD CELL COUNT(AUTO) 2.63 MIL/uL (4.0-5.2); RED CELL DISTRIBUTION WIDTH 14.8 % (11.5-15.0); WHITE BLOOD COUNT (AUTO) 7.1 K/uL (4.3-11.0)
[2025-02-28 06:33] LABS: CALCIUM, SERUM 7.7 mg/dL (8.5-10.1); CREATININE 1.6 mg/dL (0.6-1.3); MAGNESIUM 1.7 mg/dL (1.8-2.4); PHOSPHORUS 3.3 mg/dL (2.5-4.9); POTASSIUM 3.2 mmol/L (3.5-5.1)
[2025-02-28 08:00] VITALS: BP 129/69; TEMP 98.6; O2SAT 97
[2025-02-28] MEDS: MAGNESIUM OXIDE 400 MG TABLET PO ONE (10:50)
[2025-02-28] MEDS: POTASSIUM CL. PREMIX PERIPHER. 50 ML IV SCH (10:51)
[2025-02-28 12:00] VITALS: BP 152/59; TEMP 97.7; O2SAT 98
[2025-02-28 16:00] VITALS: BP 176/60; TEMP 97.3; O2SAT 97
[2025-02-28 20:00] VITALS: BP 162/67; TEMP 99; O2SAT 100
[2025-03-01] VITALS: BP 148/64; TEMP 99.5; O2SAT 100
[2025-03-01 04:00] VITALS: BP 120/46; TEMP 98.6; O2SAT 98
[2025-03-01 06:49] LABS: BASOPHILS # (AUTO) 0.1 K/uL (0.0-0.2); BASOPHILS % (AUTO) 0.9 % (0.0-2.0); EOSINOPHILS # (AUTO) 0.3 K/uL (0.0-0.7); EOSINOPHILS % (AUTO) 3.7 % (0.0-6.0); HEMATOCRIT 26 % (33-45); HEMOGLOBIN 8.7 g/dL (11.5-14.8); LYMPHOCYTES # (AUTO) 1.2 K/uL (0.8-4.8); LYMPHOCYTES % (AUTO) 15.2 % (20.0-44.0); MEAN CORPUSCULAR HEMOGLOBIN 31 PG (26.0-33.0); MEAN CORPUSCULAR HGB CONC 33 g/dl (31.0-36.0); MEAN CORPUSCULAR VOLUME 93 fL (82-100); MONOCYTES # (AUTO) 0.5 K/uL (0.1-1.30); MONOCYTES % (AUTO) 6.1 % (2.0-12.0); NEUTROPHILS # (AUTO) 6.1 K/uL (1.8-8.9); NEUTROPHILS % (AUTO) 74.1 % (43.0-81.0); PLATELET COUNT (AUTO) 140 K/uL (150-450); RED BLOOD CELL COUNT(AUTO) 2.83 MIL/uL (4.0-5.2); RED CELL DISTRIBUTION WIDTH 15.1 % (11.5-15.0); WHITE BLOOD COUNT (AUTO) 8.2 K/uL (4.3-11.0)
[2025-03-01 07:25] LABS: CALCIUM, SERUM 7.9 mg/dL (8.5-10.1); CREATININE 1.4 mg/dL (0.6-1.3); MAGNESIUM 1.6 mg/dL (1.8-2.4); PHOSPHORUS 3.2 mg/dL (2.5-4.9); POTASSIUM 3.7 mmol/L (3.5-5.1)
[2025-03-01 08:00] VITALS: BP 113/69; TEMP 98.8; O2SAT 98
[2025-03-01] MEDS: LEVOTHYROXINE SODIUM 125 MCG TABLET GT SCH (08:35)
[2025-03-01] MEDS: MAGNESIUM OXIDE 400 MG TABLET GT ONE (09:37)
[2025-03-01 12:00] VITALS: BP 120/69; TEMP 98.2; O2SAT 98
[2025-03-01 16:00] VITALS: BP 125/69; TEMP 98.4; O2SAT 98
[2025-03-01 20:00] VITALS: BP 166/61; TEMP 98.6; O2SAT 100
[2025-03-02] VITALS: BP 134/63; TEMP 101.1; O2SAT 99
[2025-03-02 04:00] VITALS: BP 133/60; TEMP 98.6; O2SAT 98
[2025-03-02 06:40] LABS: BASOPHILS # (AUTO) 0.1 K/uL (0.0-0.2); BASOPHILS % (AUTO) 0.9 % (0.0-2.0); EOSINOPHILS # (AUTO) 0.2 K/uL (0.0-0.7); EOSINOPHILS % (AUTO) 1.9 % (0.0-6.0); HEMATOCRIT 25 % (33-45); HEMOGLOBIN 8.2 g/dL (11.5-14.8); LYMPHOCYTES # (AUTO) 1.5 K/uL (0.8-4.8); LYMPHOCYTES % (AUTO) 14.6 % (20.0-44.0); MEAN CORPUSCULAR HEMOGLOBIN 31 PG (26.0-33.0); MEAN CORPUSCULAR HGB CONC 33 g/dl (31.0-36.0); MEAN CORPUSCULAR VOLUME 96 fL (82-100); MONOCYTES # (AUTO) 0.5 K/uL (0.1-1.30); MONOCYTES % (AUTO) 4.8 % (2.0-12.0); NEUTROPHILS # (AUTO) 7.8 K/uL (1.8-8.9); NEUTROPHILS % (AUTO) 77.8 % (43.0-81.0); PLATELET COUNT (AUTO) 164 K/uL (150-450); RED BLOOD CELL COUNT(AUTO) 2.64 MIL/uL (4.0-5.2); RED CELL DISTRIBUTION WIDTH 15.7 % (11.5-15.0); WHITE BLOOD COUNT (AUTO) 10.1 K/uL (4.3-11.0)
[2025-03-02 07:17] LABS: CALCIUM, SERUM 7.9 mg/dL (8.5-10.1); CREATININE 1.5 mg/dL (0.6-1.3); POTASSIUM 3.9 mmol/L (3.5-5.1)
[2025-03-02 07:21] LABS: MAGNESIUM 1.6 mg/dL (1.8-2.4); PHOSPHORUS 3.6 mg/dL (2.5-4.9)
[2025-03-02 08:00] VITALS: BP 144/64; TEMP 100; O2SAT 98
[2025-03-02] MEDS: MAGNESIUM OXIDE 400 MG TABLET GT ONE (10:38)
[2025-03-02 12:00] VITALS: BP 160/63; TEMP 98.6; O2SAT 97
[2025-03-02 13:51] LABS: APPEARANCE,URINE SLIGHTLY CLOUDY (CLEAR); BILIRUBIN,URINE NEGATIVE (NEGATIVE); BLOOD, URINE 2+ Ery/uL (NEGATIVE); COLOR,URINE YELLOW (YELLOW); KETONES,URINE NEGATIVE (NEGATIVE); LEUKOCYTE ESTERASE ,URINE 3+ (NEGATIVE); NITRITE, URINE NEGATIVE (NEGATIVE); PH,URINE 6.5 (5.0-8.0); PROTEIN,URINE 1+ mg/dl (NEGATIVE); UGLUCOSE NEGATIVE (NEGATIVE); UROBILINOGEN,URINE 0.2 EU/dL (0.2)
[2025-03-02 14:03] LABS: ADD URINE CULTURE YES; BACTERIA,URINE 1+ /HPF (None Seen); SQUAMOUS EPITHELIAL CELL,UR 0-2 /HPF (None Seen); YEAST,URINE Hyphal filaments /HPF (None Seen)
[2025-03-02 16:00] VITALS: BP 142/65; TEMP 98.1; O2SAT 97; O2SAT 98
[2025-03-02 20:00] VITALS: BP 159/60; TEMP 101.3; O2SAT 99
[2025-03-03] VITALS: BP 149/53; TEMP 99.1; O2SAT 98
[2025-03-03 04:00] VITALS: BP 162/70; TEMP 101.8; O2SAT 97
[2025-03-03 05:19] VITALS: TEMP 100.1; O2SAT 97
[2025-03-03 06:53] LABS: BASOPHILS # (AUTO) 0.1 K/uL (0.0-0.2); BASOPHILS % (AUTO) 0.7 % (0.0-2.0); EOSINOPHILS # (AUTO) 0.2 K/uL (0.0-0.7); EOSINOPHILS % (AUTO) 1.5 % (0.0-6.0); HEMATOCRIT 25 % (33-45); HEMOGLOBIN 8.4 g/dL (11.5-14.8); LYMPHOCYTES # (AUTO) 1.7 K/uL (0.8-4.8); LYMPHOCYTES % (AUTO) 15.3 % (20.0-44.0); MEAN CORPUSCULAR HEMOGLOBIN 31 PG (26.0-33.0); MEAN CORPUSCULAR HGB CONC 33 g/dl (31.0-36.0); MEAN CORPUSCULAR VOLUME 92 fL (82-100); MONOCYTES # (AUTO) 0.7 K/uL (0.1-1.30); MONOCYTES % (AUTO) 5.9 % (2.0-12.0); NEUTROPHILS # (AUTO) 8.6 K/uL (1.8-8.9); NEUTROPHILS % (AUTO) 76.6 % (43.0-81.0); PLATELET COUNT (AUTO) 212 K/uL (150-450); RED BLOOD CELL COUNT(AUTO) 2.75 MIL/uL (4.0-5.2); RED CELL DISTRIBUTION WIDTH 14.6 % (11.5-15.0); WHITE BLOOD COUNT (AUTO) 11.3 K/uL (4.3-11.0)
[2025-03-03 06:57] LABS: BILIRUBIN,TOTAL 0.2 mg/dL (0.2-1.0); CREATININE 1.5 mg/dL (0.6-1.3); MAGNESIUM 1.4 mg/dL (1.8-2.4); PHOSPHORUS 3.6 mg/dL (2.5-4.9); POTASSIUM 3.7 mmol/L (3.5-5.1); TOTAL PROTEIN, SERUM 5.5 g/dL (6.4-8.2)
[2025-03-03 08:02] LABS: ALBUMIN 1.3 g/dL (3.4-5.0)
[2025-03-03] MEDS: PROSOURCE / PROSTAT (PYXIS) 30 ML UDC GT SCH (09:10)
[2025-03-03] MEDS: MAGNESIUM OXIDE 400 MG TABLET GT ONE (09:37)
[2025-03-03 12:00] VITALS: BP 136/57; TEMP 98.6; O2SAT 97
[2025-03-03 16:00] VITALS: BP 140/48; TEMP 99; O2SAT 97
[2025-03-03] MEDS: CEFEPIME 2 GM in IV D5W 100 ML IV SCH (18:13)
[2025-03-03 20:00] VITALS: BP 131/55; TEMP 100; O2SAT 97
[2025-03-04] VITALS: BP 166/59; TEMP 97.5; O2SAT 95
[2025-03-04 04:00] VITALS: BP 136/64; TEMP 97.5; O2SAT 95
[2025-03-04 06:47] LABS: CALCIUM, SERUM 8.3 mg/dL (8.5-10.1)
[2025-03-04 06:52] LABS: ALANINE AMINOTRANSFERASE 12 U/L (12-78); ALKALINE PHOSPHATASE 136 U/L (46-116); ASPARTATE AMINOTRANSFERASE 20 U/L (15-37); BILIRUBIN,TOTAL 0.3 mg/dL (0.2-1.0); CARBON DIOXIDE 25 mmol/L (21-32); CHLORIDE 106 mmol/L (98-107); CREATININE 1.6 mg/dL (0.6-1.3); GLUCOSE 112 mg/dL (74-106); MAGNESIUM 1.6 mg/dL (1.8-2.4); PHOSPHORUS 3.8 mg/dL (2.5-4.9); POTASSIUM 4.4 mmol/L (3.5-5.1); SODIUM SERUM 140 mmol/L (136-145); TOTAL PROTEIN, SERUM 6.4 g/dL (6.4-8.2); UREA NITROGEN, BLOOD 28 mg/dL (7-18)
[2025-03-04 06:59] LABS: ALBUMIN 1.4 g/dL (3.4-5.0)
[2025-03-04 07:30] LABS: BASOPHILS # (AUTO) 0.1 K/uL (0.0-0.2); BASOPHILS % (AUTO) 0.5 % (0.0-2.0); EOSINOPHILS # (AUTO) 0.1 K/uL (0.0-0.7); EOSINOPHILS % (AUTO) 0.5 % (0.0-6.0); HEMATOCRIT 25 % (33-45); HEMOGLOBIN 8.1 g/dL (11.5-14.8); LYMPHOCYTES # (AUTO) 1.5 K/uL (0.8-4.8); LYMPHOCYTES % (AUTO) 10.7 % (20.0-44.0); MEAN CORPUSCULAR HEMOGLOBIN 30 PG (26.0-33.0); MEAN CORPUSCULAR HGB CONC 33 g/dl (31.0-36.0); MEAN CORPUSCULAR VOLUME 92 fL (82-100); MONOCYTES % (AUTO) 7.7 % (2.0-12.0); NEUTROPHILS % (AUTO) 80.6 % (43.0-81.0); PLATELET COUNT (AUTO) 247 K/uL (150-450); RED BLOOD CELL COUNT(AUTO) 2.71 MIL/uL (4.0-5.2); RED CELL DISTRIBUTION WIDTH 14.6 % (11.5-15.0); WHITE BLOOD COUNT (AUTO) 13.6 K/uL (4.3-11.0)
[2025-03-04 08:00] VITALS: BP 129/57; TEMP 100.6; O2SAT 99
[2025-03-04 12:00] VITALS: BP 128/52; TEMP 98.8; O2SAT 99
[2025-03-04 16:00] VITALS: BP 158/56; TEMP 99.3; O2SAT 99
[2025-03-04 20:00] VITALS: BP 152/54; TEMP 101.5; O2SAT 99
[2025-03-05] VITALS: BP 139/71; TEMP 98.6; O2SAT 95
[2025-03-05 04:00] VITALS: BP 145/76; TEMP 97.5; O2SAT 99
[2025-03-05 07:28] LABS: BILIRUBIN,TOTAL 0.2 mg/dL (0.2-1.0); CALCIUM, SERUM 8.4 mg/dL (8.5-10.1); CREATININE 1.7 mg/dL (0.6-1.3); MAGNESIUM 1.6 mg/dL (1.8-2.4); PHOSPHORUS 3.9 mg/dL (2.5-4.9); POTASSIUM 3.9 mmol/L (3.5-5.1)
[2025-03-05 07:48] LABS: BASOPHILS # (AUTO) 0.1 K/uL (0.0-0.2); BASOPHILS % (AUTO) 0.8 % (0.0-2.0); EOSINOPHILS # (AUTO) 0.3 K/uL (0.0-0.7); HEMATOCRIT 25 % (33-45); HEMOGLOBIN 7.9 g/dL (11.5-14.8); LYMPHOCYTES # (AUTO) 2.7 K/uL (0.8-4.8); LYMPHOCYTES % (AUTO) 19.1 % (20.0-44.0); MEAN CORPUSCULAR HEMOGLOBIN 30 PG (26.0-33.0); MEAN CORPUSCULAR HGB CONC 32 g/dl (31.0-36.0); MEAN CORPUSCULAR VOLUME 93 fL (82-100); MONOCYTES % (AUTO) 7.1 % (2.0-12.0); NEUTROPHILS # (AUTO) 9.9 K/uL (1.8-8.9); PLATELET COUNT (AUTO) 329 K/uL (150-450); RED BLOOD CELL COUNT(AUTO) 2.66 MIL/uL (4.0-5.2); RED CELL DISTRIBUTION WIDTH 15.4 % (11.5-15.0)
[2025-03-05 07:57] LABS: ALBUMIN 1.2 g/dL (3.4-5.0)
[2025-03-05 08:00] VITALS: BP 168/61; TEMP 98.4; O2SAT 99
[2025-03-05] MEDS: MAGNESIUM OXIDE 400 MG TABLET PO ONE (11:54)
[2025-03-05 12:00] VITALS: BP 164/63; TEMP 100.7; O2SAT 97
[2025-03-05] MEDS ORDERED: DOSE PER PHARMACY MICAFUNGIN 1 EA XX PRN (14:00)
[2025-03-05 14:34] LABS: EOSINOPHILS % (MANUAL) 2 % (0-4); LYMPHOCYTES % (MANUAL) 19 % (16-48); MONOCYTES % (MANUAL) 7 % (0-11.0); NEUTROPHILS % (MANUAL) 71 (42-76)
[2025-03-05 14:36] LABS: PLATELET ESTIMATE ADEQUATE
[2025-03-05] MEDS: MICAFUNGIN SODIUM 100 MG in IV NS 0.9% 100 ML IV SCH (14:38)
[2025-03-05] MEDS: BUMETANIDE INJ 6 MG in IV D5W 36 ML IV ONE (15:04)
[2025-03-05 16:00] VITALS: BP 145/73; TEMP 99.6; O2SAT 95
[2025-03-05 20:00] VITALS: BP 151/55; TEMP 99.1; O2SAT 96
[2025-03-06] VITALS (7 sets, daily range): BP systolic 133–185; BP diastolic 45–83; TEMP 97.9–98.8; O2SAT 95–98
[2025-03-06 07:26] LABS: BASOPHILS # (AUTO) 0.1 K/uL (0.0-0.2); BASOPHILS % (AUTO) 0.4 % (0.0-2.0); EOSINOPHILS # (AUTO) 0.2 K/uL (0.0-0.7); EOSINOPHILS % (AUTO) 1.1 % (0.0-6.0); HEMATOCRIT 26 % (33-45); HEMOGLOBIN 8.5 g/dL (11.5-14.8); LYMPHOCYTES # (AUTO) 3.9 K/uL (0.8-4.8); LYMPHOCYTES % (AUTO) 21.1 % (20.0-44.0); MEAN CORPUSCULAR HEMOGLOBIN 30 PG (26.0-33.0); MEAN CORPUSCULAR HGB CONC 33 g/dl (31.0-36.0); MEAN CORPUSCULAR VOLUME 93 fL (82-100); MONOCYTES # (AUTO) 1.7 K/uL (0.1-1.30); MONOCYTES % (AUTO) 9.2 % (2.0-12.0); NEUTROPHILS # (AUTO) 12.6 K/uL (1.8-8.9); NEUTROPHILS % (AUTO) 68.2 % (43.0-81.0); PLATELET COUNT (AUTO) 419 K/uL (150-450); RED BLOOD CELL COUNT(AUTO) 2.82 MIL/uL (4.0-5.2); RED CELL DISTRIBUTION WIDTH 15.3 % (11.5-15.0); WHITE BLOOD COUNT (AUTO) 18.4 K/uL (4.3-11.0)
[2025-03-06 08:18] LABS: CALCIUM, SERUM 8.6 mg/dL (8.5-10.1); CARBON DIOXIDE 22 mmol/L (21-32); CHLORIDE 104 mmol/L (98-107); GLUCOSE 94 mg/dL (74-106); MAGNESIUM 1.9 mg/dL (1.8-2.4); PHOSPHORUS 3.8 mg/dL (2.5-4.9); POTASSIUM 4.5 mmol/L (3.5-5.1); SODIUM SERUM 139 mmol/L (136-145); UREA NITROGEN, BLOOD 34 mg/dL (7-18)
[2025-03-06 09:22] LABS: CREATININE 1.6 mg/dL (0.6-1.3)
[2025-03-06 13:16] LABS: LYMPHOCYTES % (MANUAL) 23 % (16-48); MONOCYTES % (MANUAL) 7 % (0-11.0); NEUTROPHILS % (MANUAL) 70 (42-76); PLATELET ESTIMATE ADEQUATE
[2025-03-07] VITALS: BP 135/49; TEMP 98.1; O2SAT 97
[2025-03-07 04:00] VITALS: BP 138/49; TEMP 98.2; O2SAT 97
[2025-03-07 08:00] VITALS: BP 174/69; TEMP 98.1; O2SAT 98
[2025-03-07 08:09] LABS: BASOPHILS # (AUTO) 0.1 K/uL (0.0-0.2); BASOPHILS % (AUTO) 0.7 % (0.0-2.0); EOSINOPHILS # (AUTO) 0.3 K/uL (0.0-0.7); EOSINOPHILS % (AUTO) 2.3 % (0.0-6.0); HEMATOCRIT 22 % (33-45); HEMOGLOBIN 7.1 g/dL (11.5-14.8); LYMPHOCYTES # (AUTO) 2.6 K/uL (0.8-4.8); LYMPHOCYTES % (AUTO) 20.4 % (20.0-44.0); MEAN CORPUSCULAR HEMOGLOBIN 30 PG (26.0-33.0); MEAN CORPUSCULAR HGB CONC 32 g/dl (31.0-36.0); MEAN CORPUSCULAR VOLUME 92 fL (82-100); MONOCYTES # (AUTO) 1.2 K/uL (0.1-1.30); MONOCYTES % (AUTO) 9.1 % (2.0-12.0); NEUTROPHILS # (AUTO) 8.7 K/uL (1.8-8.9); NEUTROPHILS % (AUTO) 67.5 % (43.0-81.0); PLATELET COUNT (AUTO) 454 K/uL (150-450); RED BLOOD CELL COUNT(AUTO) 2.38 MIL/uL (4.0-5.2); RED CELL DISTRIBUTION WIDTH 14.8 % (11.5-15.0); WHITE BLOOD COUNT (AUTO) 12.9 K/uL (4.3-11.0)
[2025-03-07 08:14] LABS: CALCIUM, SERUM 8.1 mg/dL (8.5-10.1); CREATININE 1.6 mg/dL (0.6-1.3); MAGNESIUM 1.6 mg/dL (1.8-2.4); PHOSPHORUS 4.2 mg/dL (2.5-4.9); POTASSIUM 3.7 mmol/L (3.5-5.1)
[2025-03-07 12:00] VITALS: BP 184/72; TEMP 99.3; O2SAT 98
[2025-03-07 12:51] LABS: EOSINOPHILS % (MANUAL) 1 % (0-4); LYMPHOCYTES % (MANUAL) 22 % (16-48); MONOCYTES % (MANUAL) 7 % (0-11.0); NEUTROPHILS % (MANUAL) 70 (42-76); PLATELET ESTIMATE ADEQUATE
[2025-03-07] MEDS: MAGNESIUM OXIDE 400 MG TABLET GT ONE (12:51)
[2025-03-07 16:00] VITALS: BP 168/72; TEMP 99.5; O2SAT 98
[2025-03-07 20:00] VITALS: BP 182/64; TEMP 99.3; O2SAT 97
[2025-03-08] VITALS: BP 182/64; TEMP 98.8; O2SAT 97
[2025-03-08 04:00] VITALS: BP 168/57; TEMP 98.5; O2SAT 97
[2025-03-08 07:00] LABS: BASOPHILS # (AUTO) 0.1 K/uL (0.0-0.2); BASOPHILS % (AUTO) 0.7 % (0.0-2.0); EOSINOPHILS # (AUTO) 0.2 K/uL (0.0-0.7); EOSINOPHILS % (AUTO) 1.5 % (0.0-6.0); HEMATOCRIT 22 % (33-45); HEMOGLOBIN 7.2 g/dL (11.5-14.8); LYMPHOCYTES % (AUTO) 20.9 % (20.0-44.0); MEAN CORPUSCULAR HEMOGLOBIN 30 PG (26.0-33.0); MEAN CORPUSCULAR HGB CONC 33 g/dl (31.0-36.0); MEAN CORPUSCULAR VOLUME 91 fL (82-100); MONOCYTES # (AUTO) 1.2 K/uL (0.1-1.30); MONOCYTES % (AUTO) 8.6 % (2.0-12.0); NEUTROPHILS # (AUTO) 9.8 K/uL (1.8-8.9); NEUTROPHILS % (AUTO) 68.3 % (43.0-81.0); PLATELET COUNT (AUTO) 528 K/uL (150-450); RED BLOOD CELL COUNT(AUTO) 2.38 MIL/uL (4.0-5.2); RED CELL DISTRIBUTION WIDTH 14.8 % (11.5-15.0); WHITE BLOOD COUNT (AUTO) 14.3 K/uL (4.3-11.0)
[2025-03-08 07:17] LABS: BILIRUBIN,TOTAL 0.3 mg/dL (0.2-1.0); CALCIUM, SERUM 8.3 mg/dL (8.5-10.1); CREATININE 1.6 mg/dL (0.6-1.3); MAGNESIUM 1.7 mg/dL (1.8-2.4); PHOSPHORUS 4.4 mg/dL (2.5-4.9); POTASSIUM 3.8 mmol/L (3.5-5.1); TOTAL PROTEIN, SERUM 6.5 g/dL (6.4-8.2)
[2025-03-08 07:55] LABS: ALBUMIN 1.3 g/dL (3.4-5.0)
[2025-03-08 08:00] VITALS: BP 154/55; TEMP 99.8; O2SAT 98
[2025-03-08] MEDS: MAGNESIUM OXIDE 400 MG TABLET PO ONE (10:56)
[2025-03-08 12:00] VITALS: BP 174/62; TEMP 98.8; O2SAT 97
[2025-03-08 15:02] LABS: LYMPHOCYTES % (MANUAL) 21 % (16-48); MONOCYTES % (MANUAL) 9 % (0-11.0); NEUTROPHILS % (MANUAL) 70 (42-76)
[2025-03-08 15:03] LABS: ANISOCYTOSIS 1+; PLATELET ESTIMATE ADEQUATE
[2025-03-08 16:00] VITALS: BP 149/48; TEMP 98.8; O2SAT 98
== END 2025-03-08 18:49 | DRG 4 ==
LOC: ER 20:13 → ICU 21:51 → TELE1 02-21 13:29 → ICU 02-23 09:47 → TELE1 02-26 11:00
PROVIDERS: ADMIT Nurse Practitioner Family
PROC: 5A1955Z Respiratory Ventilation, Greater than 96 Consecutive Hours (ICD-10-PCS; principal; 2025-02-13)
PROC: 0BH17EZ Insertion of Endotracheal Airway into Trachea, Via Natural or Artificial Opening (ICD-10-PCS; 2025-02-13)
PROC: 5A1D70Z Performance of Urinary Filtration, Intermittent, Less than 6 Hours Per Day (ICD-10-PCS; 2025-02-14)
PROC: 06HY33Z Insertion of Infusion Device into Lower Vein, Percutaneous Approach (ICD-10-PCS; 2025-02-14)
PROC: 30233N1 Transfusion of Nonautologous Red Blood Cells into Peripheral Vein, Percutaneous Approach (ICD-10-PCS; 2025-02-17)
PROC: 0DH63UZ Insertion of Feeding Device into Stomach, Percutaneous Approach (ICD-10-PCS; 2025-02-19)
PROC: 0DB98ZX Excision of Duodenum, Via Natural or Artificial Opening Endoscopic, Diagnostic (ICD-10-PCS; 2025-02-19)
PROC: 0DB68ZX Excision of Stomach, Via Natural or Artificial Opening Endoscopic, Diagnostic (ICD-10-PCS; 2025-02-19)
PROC: 0B113F4 Bypass Trachea to Cutaneous with Tracheostomy Device, Percutaneous Approach (ICD-10-PCS; 2025-02-20)
PROC: 0BJ08ZZ Inspection of Tracheobronchial Tree, Via Natural or Artificial Opening Endoscopic (ICD-10-PCS; 2025-02-20)
PROC: 0DBN8ZZ Excision of Sigmoid Colon, Via Natural or Artificial Opening Endoscopic (ICD-10-PCS; 2025-02-25)
DX: A41.9 Sepsis, unspecified organism (principal); G92.8 Other toxic encephalopathy; J69.0 Pneumonitis due to inhalation of food and vomit; J96.01 Acute respiratory failure with hypoxia; N17.0 Acute kidney failure with tubular necrosis; I21.A1 Myocardial infarction type 2; R65.21 Severe sepsis with septic shock; J15.9 Unspecified bacterial pneumonia; K29.71 Gastritis, unspecified, with bleeding; K29.81 Duodenitis with bleeding; K57.31 Diverticulosis of large intestine without perforation or abscess with bleeding; R57.8 Other shock; K25.4 Chronic or unspecified gastric ulcer with hemorrhage; E44.0 Moderate protein-calorie malnutrition; N39.0 Urinary tract infection, site not specified; E87.0 Hyperosmolality and hypernatremia; E87.20 Acidosis, unspecified; B37.7 Candidal sepsis; E86.0 Dehydration; E86.1 Hypovolemia; I12.9 Hypertensive chronic kidney disease with stage 1 through stage 4 chronic kidney disease, or unspecified chronic kidney disease; N18.9 Chronic kidney disease, unspecified; E78.5 Hyperlipidemia, unspecified; E87.5 Hyperkalemia; E88.09 Other disorders of plasma-protein metabolism, not elsewhere classified; I25.10 Atherosclerotic heart disease of native coronary artery without angina pectoris; I48.91 Unspecified atrial fibrillation; I73.9 Peripheral vascular disease, unspecified; M81.0 Age-related osteoporosis without current pathological fracture; R13.10 Dysphagia, unspecified; E83.42 Hypomagnesemia; E03.9 Hypothyroidism, unspecified; D64.9 Anemia, unspecified; R73.9 Hyperglycemia, unspecified; Z89.611 Acquired absence of right leg above knee; Z68.25 Body mass index [BMI] 25.0-25.9, adult; L89.626 Pressure-induced deep tissue damage of left heel; L89.326 Pressure-induced deep tissue damage of left buttock; L89.316 Pressure-induced deep tissue damage of right buttock; L89.156 Pressure-induced deep tissue damage of sacral region; L98.8 Other specified disorders of the skin and subcutaneous tissue; E83.9 Disorder of mineral metabolism, unspecified; B96.1 Klebsiella pneumoniae [K. pneumoniae] as the cause of diseases classified elsewhere; K63.5 Polyp of colon; K63.89 Other specified diseases of intestine; Z88.0 Allergy status to penicillin; F03.90 Unspecified dementia, unspecified severity, without behavioral disturbance, psychotic disturbance, mood disturbance, and anxiety
CPT/HCPCS: 31720; 36415; 36600; 43235; 43246; 71045-TC; 71250-TC; 76770-TC; 80048-TC; 80053-TC; 80076-TC; 80202-TC; 81001; 82010-TC; 82247-TC; 82248-TC; 82272-TC; 82550-TC; 82570-TC; 82607-TC; 82728-TC; 82803-TC; 82962-TC; 83540-TC; 83605-TC; 83735-TC; 83970; 84100-TC; 84155; 84165; 84300-TC; 84439-TC; 84443-TC; 84478-TC; 84481; 84484-TC; 85025-TC; 85610-TC; 85652-TC; 85730-TC; 86225; 86235; 86706; 86803; 86850-TC; 87040-TC; 87070-TC; 87081-TC; 87086-TC; 87186-TC; 87205-TC; 87340; 87806; 88305-TC; 88312-TC; 88313-TC; 90935-TC; 93307-TC; 93971-TC; 94002-TC; 94003-TC; 94640-TC; 94760-TC; 94762-TC; 94799-TC; 99082-TC; A4216; A4223; A6213; A6403; A7526; A9560; A9563; G0378; J0360; J0692; J1815; J2060; J2185; J2248; J2250; J2470; J2543; J2704; J3010; J3370; J3475; J3480; J3490; J7030; J7040; J7042; J7050; J7060; J7070; P9016; P9047

== ENCOUNTER 2025-03-23 16:03 | Inpatient (IN) | payer MEDICARE ==
[~2025-03-23] VITALS: Ht 170.2 cm; Wt 65.8 kg
[~2025-03-23 16:03] MED LIST changes: +AMLO-212 GT; +ATOR40TA GT; +CALC-261 PO; +CLOP75TA15 GT; +ESCI10TA PO; +FERR325T23 GT; +GABA-532 GT; +LEVO88TA5 PO; +MEMA10TA GT; +OMEP20CA15 PO
[2025-03-23] MEDS ORDERED: PANTOPRAZOLE 40 MG VIAL ONE (17:05)
[2025-03-23] MEDS: IV NS 0.9% 1,000 ML BAG IV ONE (17:24)
[2025-03-23] MEDS: PANTOPRAZOLE 40 MG VIAL IV ONE (17:24)
[2025-03-23 17:37] LABS: PLATELET COUNT (AUTO) 620 K/uL (150-450); RED BLOOD CELL COUNT(AUTO) 2.18 MIL/uL (4.0-5.2); RED CELL DISTRIBUTION WIDTH 15.0 % (11.5-15.0); WHITE BLOOD COUNT (AUTO) 21.1 K/uL (4.3-11.0)
[2025-03-23 17:43] LABS: CALCIUM, SERUM 10.1 mg/dL (8.5-10.1); CREATININE 1.8 mg/dL (0.6-1.3); SODIUM SERUM 138 mmol/L (136-145); UREA NITROGEN, BLOOD 52 mg/dL (7-18)
[2025-03-23 17:43] LABS: APPEARANCE,URINE CLOUDY (CLEAR)
[2025-03-23 17:46] LABS: INR 0.9 (0.91-1.10)
[2025-03-23 17:49] LABS: ASPARTATE AMINOTRANSFERASE 18 U/L (15-37); TOTAL PROTEIN, SERUM 9.3 g/dL (6.4-8.2)
[2025-03-23 17:52] LABS: NITRITE, URINE NEGATIVE (NEGATIVE); UGLUCOSE NEGATIVE (NEGATIVE)
[2025-03-23 17:54] LABS: LACTIC ACID 2.5 mmol/L (0.4-2.0)
[2025-03-23 17:59] LABS: BLOOD, URINE LARGE Ery/uL (NEGATIVE)
[2025-03-23 18:00] LABS: LEUKOCYTE ESTERASE ,URINE LARGE (NEGATIVE)
[2025-03-23] MEDS: LEVOFLOXACIN 750 MG /D5W 150ML 150 ML IV ONE (18:00)
[2025-03-23 18:01] LABS: ADD URINE CULTURE YES; SQUAMOUS EPITHELIAL CELL,UR Many /HPF (None Seen)
[2025-03-23 18:02] LABS: URINE AMORPHOUS PHOSPHATES Many /HPF (None Seen); YEAST,URINE Rare /HPF (None Seen)
[2025-03-23 18:49] LABS: EOSINOPHILS % (MANUAL) 4 % (0-4); LYMPHOCYTES % (MANUAL) 23 % (16-48); MONOCYTES % (MANUAL) 5 % (0-11.0); NEUTROPHILS % (MANUAL) 68 (42-76); PLATELET ESTIMATE INCREASED
[2025-03-23] MEDS ORDERED: CHLO473M5 PO (18:52)
[2025-03-23] MEDS ORDERED: BISA10SU11 RC (18:52)
[2025-03-23] MEDS ORDERED: PANT40SU2 GT (18:52)
[2025-03-23] MEDS ORDERED: AMIN30LI66 GT (18:52)
[2025-03-23] MEDS ORDERED: NUT.237L30 GT (18:52)
[2025-03-23] MEDS ORDERED: LEVO125T8 GT (18:52)
[2025-03-23] MEDS ORDERED: NA P133E RC (18:52)
[2025-03-23] MEDS ORDERED: VITAMIN D GT (18:52)
[2025-03-23] MEDS ORDERED: DOCU100T2 GT (18:52)
[2025-03-23] MEDS ORDERED: IPRA4AER IH ×2 (18:52)
[2025-03-23] MEDS ORDERED: ASCO500T10 GT (18:52)
[2025-03-23] MEDS ORDERED: SOD62.5V IV (18:52)
[2025-03-23] MEDS ORDERED: INSU100V3 SQ (18:52)
[2025-03-23] MEDS ORDERED: ACET325T53 GT (18:52)
[2025-03-23] MEDS ORDERED: NEOM28.37 TP (18:52)
[2025-03-23] MEDS ORDERED: MAGN400O6 GT (18:52)
[2025-03-23] MEDS ORDERED: ZINC50TA69 GT (18:52)
[2025-03-23] MEDS ORDERED: MORPHINE SULFATE INJ 2 MG/ML DISP.SYRIN IV PRN (19:00)
[2025-03-23] MEDS ORDERED: Medication Not On Formulary EA (Ipratropium/Albuterol Sulfate (Combivent Respimat 20-100 IH PRN (19:00)
[2025-03-23] MEDS ORDERED: ONDANSETRON HCL/PF 4 MG/2 ML VIAL IVP PRN (19:00)
[2025-03-23] MEDS ORDERED: DEXTROSE 50%-WATER 50 ML DISP.SYRIN IV PRN (19:00)
[2025-03-23] MEDS ORDERED: DOSING PER PHARMACY-CEFEPIME IVPB XX PRN (19:00)
[2025-03-23 19:14] LABS: OCCULT BLOOD STOOL NEGATIVE (NEGATIVE)
[2025-03-23 21:30] VITALS: BP 146/57; TEMP 98.9
[2025-03-23] MEDS: IV NS 0.9% 1,000 ML IV SCH (21:58)
[2025-03-23] MEDS: ATORVASTATIN 40 MG TABLET GT SCH (22:47)
[2025-03-24] VITALS (14 sets, daily range): BP systolic 111–157; BP diastolic 52–78; TEMP 97.8–99; O2SAT 99–100
[2025-03-24] MEDS ORDERED: Medication Not On Formulary EA (Ipratropium/Albuterol Sulfate (Combivent Respimat 20-100 IH SCH
[2025-03-24] MEDS: BLOOD SUGAR DIAGNOSTIC 1 EACH STRIP IN SCH (00:01)
[2025-03-24] MEDS ORDERED: IPRATROPIUM NEB FS 0.5 MG/2.5 ML AMPUL.NEB NEB PRN (01:30)
[2025-03-24] MEDS ORDERED: ALBUTEROL FS 2.5 MG/3 ML VIAL.NEB NEB PRN (01:30)
[2025-03-24] MEDS: ALBUTEROL FS 2.5 MG/3 ML VIAL.NEB NEB SCH (01:39)
[2025-03-24] MEDS: IPRATROPIUM NEB FS 0.5 MG/2.5 ML AMPUL.NEB NEB SCH (01:39)
[2025-03-24] MEDS ORDERED: CEFEPIME 1 GM in IV D5W 50 ML IV SCH (09:00)
[2025-03-24 09:15] LABS: PLATELET COUNT (AUTO) 483 K/uL (150-450); RED BLOOD CELL COUNT(AUTO) 3.46 MIL/uL (4.0-5.2); RED CELL DISTRIBUTION WIDTH 24.4 % (11.5-15.0); WHITE BLOOD COUNT (AUTO) 13.5 K/uL (4.3-11.0)
[2025-03-24] MEDS: GABAPENTIN 100 MG CAPSULE GT SCH (09:17)
[2025-03-24] MEDS: PANTOPRAZOLE 40 MG VIAL IV SCH (09:17)
[2025-03-24] MEDS: CLOPIDOGREL BISULFATE 75 MG TABLET GT SCH (09:17)
[2025-03-24] MEDS: FERROUS SULFATE (325 MG) 325 MG/TAB TABLET GT SCH (09:17)
[2025-03-24] MEDS: CHLORHEXIDINE GLUCONATE 15 ML UDC MM SCH (09:17)
[2025-03-24] MEDS: MEMANTINE HCL 5 MG TABLET GT SCH (09:17)
[2025-03-24] MEDS: LEVOTHYROXINE SODIUM 125 MCG TABLET GT SCH (09:22)
[2025-03-24] MEDS: CEFEPIME 1 GM in IV D5W 50 ML IV SCH (09:22)
[2025-03-24] MEDS: AMLODIPINE BESYLATE 5 MG TABLET GT SCH (09:22)
[2025-03-24 09:26] LABS: ASPARTATE AMINOTRANSFERASE 16.0 U/L (15-37); CALCIUM, SERUM 8.8 mg/dL (8.5-10.1); CREATININE 1.4 mg/dL (0.6-1.3); PHOSPHORUS 3.4 mg/dL (2.5-4.9); SODIUM SERUM 144.0 mmol/L (136-145); TOTAL PROTEIN, SERUM 8.3 g/dL (6.4-8.2); UREA NITROGEN, BLOOD 38.0 mg/dL (7-18)
[2025-03-24] MEDS: THERAHONEY GEL 1.5 OZ TUBE TP SCH (11:45)
[2025-03-24] MEDS: VITAL AF 1.2 1,000 ML BOTTLE GT PRN (12:12)
[2025-03-24] MEDS: ARGININE/GLUTAMINE/CALCIUM BMB 1 EACH POWD.PACK GT SCH (18:00)
[2025-03-25] VITALS (7 sets, daily range): BP systolic 106–160; BP diastolic 69–100; TEMP 97.9–99.1; O2SAT 100
[2025-03-25 07:18] LABS: CREATINE KINASE, TOTAL 29.0 U/L (26-192)
[2025-03-25 07:23] LABS: ASPARTATE AMINOTRANSFERASE 21.0 U/L (15-37); CALCIUM, SERUM 8.8 mg/dL (8.5-10.1); CREATININE 1.3 mg/dL (0.6-1.3); PHOSPHORUS 2.7 mg/dL (2.5-4.9); SODIUM SERUM 145.0 mmol/L (136-145); TOTAL PROTEIN, SERUM 8.6 g/dL (6.4-8.2); UREA NITROGEN, BLOOD 26.0 mg/dL (7-18)
[2025-03-25 08:13] LABS: PLATELET COUNT (AUTO) 555 K/uL (150-450); RED BLOOD CELL COUNT(AUTO) 3.47 MIL/uL (4.0-5.2); RED CELL DISTRIBUTION WIDTH 24.3 % (11.5-15.0); WHITE BLOOD COUNT (AUTO) 14.4 K/uL (4.3-11.0)
[2025-03-25] MEDS: PANTOPRAZOLE 40 MG/PACK PACK GT SCH (09:14)
[2025-03-25] MEDS: POTASSIUM CHLORIDE 20 MEQ POWDER PACKET GT ONE (09:44)
[2025-03-25] MEDS: MUPIROCIN OINT 2% 22 GM TUBE NS SCH (21:44)
[2025-03-26] VITALS: BP 131/83; TEMP 99.5; O2SAT 100
[2025-03-26] MEDS: INSULIN REGULAR, HUMAN 100 UNIT/ML 3 ML VIAL SQ PRN (00:43)
[2025-03-26 04:00] VITALS: BP 145/90; TEMP 97.7; O2SAT 99
[2025-03-26 05:08] LABS: PTH, INTACT 38 pg/mL (15-65)
[2025-03-26 07:15] LABS: CALCIUM, SERUM 9.4 mg/dL (8.5-10.1); CREATININE 1.3 mg/dL (0.6-1.3); SODIUM SERUM 148.0 mmol/L (136-145); UREA NITROGEN, BLOOD 26.0 mg/dL (7-18)
[2025-03-26 08:00] VITALS: BP 124/88; TEMP 98.2; O2SAT 100
[2025-03-26] MEDS: IV 1/2NS 1000 ML 1,000 ML IV SCH (10:48)
[2025-03-26 11:03] LABS: PLATELET COUNT (AUTO) 578 K/uL (150-450); RED BLOOD CELL COUNT(AUTO) 3.89 MIL/uL (4.0-5.2); RED CELL DISTRIBUTION WIDTH 24.6 % (11.5-15.0); WHITE BLOOD COUNT (AUTO) 15.8 K/uL (4.3-11.0)
[2025-03-26] MEDS: SULFAMETH/TRIMETH 800/160 MG 1 UDTAB TABLET PO SCH (11:04)
[2025-03-26 11:17] LABS: ASPARTATE AMINOTRANSFERASE 23.0 U/L (15-37); TOTAL PROTEIN, SERUM 9.2 g/dL (6.4-8.2)
[2025-03-26 12:00] VITALS: BP 148/90; TEMP 98.6; O2SAT 100
[2025-03-26 16:00] VITALS: BP 128/65; TEMP 98.6; O2SAT 98
[2025-03-26 20:00] VITALS: BP 157/52; TEMP 98.4; O2SAT 100
[2025-03-27] VITALS (7 sets, daily range): BP systolic 120–136; BP diastolic 79–94; TEMP 98–99.1; O2SAT 100
[2025-03-27 06:42] LABS: PLATELET COUNT (AUTO) 530 K/uL (150-450); RED BLOOD CELL COUNT(AUTO) 3.61 MIL/uL (4.0-5.2); RED CELL DISTRIBUTION WIDTH 24.4 % (11.5-15.0); WHITE BLOOD COUNT (AUTO) 16.6 K/uL (4.3-11.0)
[2025-03-27 07:02] LABS: ASPARTATE AMINOTRANSFERASE 21.0 U/L (15-37); CALCIUM, SERUM 8.8 mg/dL (8.5-10.1); CREATININE 1.0 mg/dL (0.6-1.3); PHOSPHORUS 2.9 mg/dL (2.5-4.9); SODIUM SERUM 142.0 mmol/L (136-145); TOTAL PROTEIN, SERUM 8.5 g/dL (6.4-8.2); UREA NITROGEN, BLOOD 28.0 mg/dL (7-18)
[2025-03-27] MEDS: IV 1/2NS 1000 ML 1,000 ML IV PRN (17:36)
[2025-03-28] VITALS: BP 118/76; TEMP 98.6; O2SAT 100
[2025-03-28 04:00] VITALS: BP 115/55; TEMP 99; O2SAT 100
[2025-03-28 07:15] LABS: PLATELET COUNT (AUTO) 511 K/uL (150-450); RED BLOOD CELL COUNT(AUTO) 3.53 MIL/uL (4.0-5.2); RED CELL DISTRIBUTION WIDTH 23.9 % (11.5-15.0); WHITE BLOOD COUNT (AUTO) 17.1 K/uL (4.3-11.0)
[2025-03-28 08:00] VITALS: BP 138/53; TEMP 99; O2SAT 100
[2025-03-28 08:01] LABS: CALCIUM, SERUM 9.6 mg/dL (8.5-10.1); CREATININE 1.2 mg/dL (0.6-1.3); PHOSPHORUS 3.3 mg/dL (2.5-4.9); SODIUM SERUM 138.0 mmol/L (136-145); UREA NITROGEN, BLOOD 31.0 mg/dL (7-18)
[2025-03-28 12:00] VITALS: BP 123/51; TEMP 98.9; O2SAT 100
[2025-03-28 16:00] VITALS: BP 119/51; TEMP 98.3; O2SAT 100
[2025-03-28 20:00] VITALS: BP 133/55; TEMP 98.2; O2SAT 100
[2025-03-29] VITALS: BP 125/50; TEMP 98.2; O2SAT 96
[2025-03-29 04:00] VITALS: BP 148/51; TEMP 98; O2SAT 100
[2025-03-29 06:52] LABS: PLATELET COUNT (AUTO) 511 K/uL (150-450); RED BLOOD CELL COUNT(AUTO) 3.62 MIL/uL (4.0-5.2); RED CELL DISTRIBUTION WIDTH 24.1 % (11.5-15.0); WHITE BLOOD COUNT (AUTO) 14.8 K/uL (4.3-11.0)
[2025-03-29 06:55] LABS: CALCIUM, SERUM 9.4 mg/dL (8.5-10.1); CREATININE 1.2 mg/dL (0.6-1.3); PHOSPHORUS 4.0 mg/dL (2.5-4.9); SODIUM SERUM 137.0 mmol/L (136-145); UREA NITROGEN, BLOOD 30.0 mg/dL (7-18)
[2025-03-29 08:00] VITALS: BP 121/65; TEMP 98; O2SAT 100
[2025-03-29 08:07] LABS: *SPE A/G RATIO 0.5 (0.7-1.7); *SPE ALBUMIN 2.5 g/dL (2.9-4.4); *SPE ALPHA-1-GLOBULIN 0.4 g/dL (0.0-0.4); *SPE ALPHA-2-GLOBULIN 1.2 g/dL (0.4-1.0); *SPE BETA GLOBULIN 1.5 g/dL (0.7-1.3); *SPE GLOBULIN, TOTAL 4.9 g/dL (2.2-3.9); *SPE M-SPIKE Not Observed g/dL (Not Observed); *SPE PROTEIN TOTAL 7.4 g/dL (6.0-8.5); *SPEGAMMA GLOBULIN 1.9 g/dL (0.4-1.8)
[2025-03-29 12:00] VITALS: BP 96/70; TEMP 98.6; O2SAT 100
[2025-03-29 16:00] VITALS: BP 131/61; TEMP 98.6; O2SAT 100
[2025-03-29 20:00] VITALS: BP 153/57; TEMP 98.2; O2SAT 100
[2025-03-30] VITALS: BP 145/60; TEMP 98.2; O2SAT 100
[2025-03-30 04:00] VITALS: BP 130/67; TEMP 98.4; O2SAT 100
[2025-03-30 06:55] LABS: PLATELET COUNT (AUTO) 499 K/uL (150-450); RED BLOOD CELL COUNT(AUTO) 3.33 MIL/uL (4.0-5.2); RED CELL DISTRIBUTION WIDTH 24.3 % (11.5-15.0); WHITE BLOOD COUNT (AUTO) 13.5 K/uL (4.3-11.0)
[2025-03-30 07:04] LABS: CALCIUM, SERUM 9.5 mg/dL (8.5-10.1); CREATININE 1.3 mg/dL (0.6-1.3); PHOSPHORUS 4.9 mg/dL (2.5-4.9); SODIUM SERUM 139.0 mmol/L (136-145); UREA NITROGEN, BLOOD 38.0 mg/dL (7-18)
[2025-03-30 08:00] VITALS: BP 158/67; TEMP 98.9; O2SAT 100
[2025-03-30 12:00] VITALS: BP 125/52; TEMP 98.6; O2SAT 100
[2025-03-30 16:00] VITALS: BP 131/69; TEMP 98.4; O2SAT 99
[2025-03-30 20:00] VITALS: BP 126/79; TEMP 97.5; O2SAT 100
[2025-03-31] VITALS: BP 125/69; TEMP 98.8; O2SAT 100
[2025-03-31 04:00] VITALS: BP 146/68; TEMP 98.4; O2SAT 98
[2025-03-31 06:55] LABS: PLATELET COUNT (AUTO) 541 K/uL (150-450); RED BLOOD CELL COUNT(AUTO) 3.47 MIL/uL (4.0-5.2); RED CELL DISTRIBUTION WIDTH 24.9 % (11.5-15.0); WHITE BLOOD COUNT (AUTO) 16.2 K/uL (4.3-11.0)
[2025-03-31 08:00] VITALS: BP 149/75; TEMP 98.9; O2SAT 100
[2025-03-31 12:00] VITALS: BP 152/69; TEMP 98.6; O2SAT 95
[2025-03-31 16:00] VITALS: BP 132/69; TEMP 98.1; O2SAT 98
[2025-03-31 20:00] VITALS: BP 135/60; TEMP 98.6; O2SAT 99
[2025-04-01] VITALS: BP 151/68; TEMP 98.8; O2SAT 98
[2025-04-01 04:00] VITALS: BP 128/59; TEMP 98.4; O2SAT 99
[2025-04-01 07:36] LABS: PLATELET COUNT (AUTO) 543 K/uL (150-450); RED BLOOD CELL COUNT(AUTO) 3.63 MIL/uL (4.0-5.2); RED CELL DISTRIBUTION WIDTH 24.0 % (11.5-15.0); WHITE BLOOD COUNT (AUTO) 16.2 K/uL (4.3-11.0)
[2025-04-01 08:00] VITALS: BP 154/69; TEMP 98.8; O2SAT 100
[2025-04-01] MEDS: THERAHONEY GEL 1.5 OZ TUBE TP SCH (08:57)
[2025-04-01 12:00] VITALS: BP 141/54; TEMP 98.8; O2SAT 98
[2025-04-01] MEDS: CEFEPIME 2 GM in IV D5W 50 ML IV SCH (13:49)
[2025-04-01 16:00] VITALS: BP 118/92; TEMP 98.8; O2SAT 99
[2025-04-01 20:00] VITALS: BP 100/50; TEMP 98.4; O2SAT 100
[2025-04-02] VITALS: BP 93/74; TEMP 98.4; O2SAT 98
[2025-04-02 04:00] VITALS: BP 108/83; TEMP 98.6; O2SAT 98
[2025-04-02 06:53] LABS: PLATELET COUNT (AUTO) 536 K/uL (150-450); RED BLOOD CELL COUNT(AUTO) 3.61 MIL/uL (4.0-5.2); RED CELL DISTRIBUTION WIDTH 24.4 % (11.5-15.0); WHITE BLOOD COUNT (AUTO) 18.9 K/uL (4.3-11.0)
[2025-04-02 07:07] LABS: CALCIUM, SERUM 10.5 mg/dL (8.5-10.1); CREATININE 1.7 mg/dL (0.6-1.3); PHOSPHORUS 4.3 mg/dL (2.5-4.9); SODIUM SERUM 138.0 mmol/L (136-145); UREA NITROGEN, BLOOD 73.0 mg/dL (7-18)
[2025-04-02 08:00] VITALS: BP 149/52; TEMP 99; O2SAT 100; O2SAT 96
[2025-04-02] MEDS: SODIUM ZIRCONIUM CYCLOSILICATE 10 GM POWD.PACK PO ONE (09:19)
[2025-04-02 12:00] VITALS: BP 147/48; TEMP 99.1; O2SAT 95
[2025-04-02 14:31] LABS: CALCIUM, SERUM 10.6 mg/dL (8.5-10.1); CREATININE 1.8 mg/dL (0.6-1.3); SODIUM SERUM 139.0 mmol/L (136-145)
[2025-04-02 15:05] LABS: UREA NITROGEN, BLOOD 87.0 mg/dL (7-18)
[2025-04-02 16:00] VITALS: BP 124/43; TEMP 99; O2SAT 99
[2025-04-02 20:00] VITALS: BP 96/81; TEMP 98.8; O2SAT 99
[2025-04-03] VITALS: BP 122/59; TEMP 98.6; O2SAT 99
[2025-04-03 04:00] VITALS: BP 140/48; TEMP 99; O2SAT 99
[2025-04-03 06:54] LABS: PLATELET COUNT (AUTO) 479 K/uL (150-450); RED BLOOD CELL COUNT(AUTO) 3.20 MIL/uL (4.0-5.2); RED CELL DISTRIBUTION WIDTH 24.8 % (11.5-15.0); WHITE BLOOD COUNT (AUTO) 14.7 K/uL (4.3-11.0)
[2025-04-03 08:00] VITALS: BP 129/50; TEMP 99.7; O2SAT 100
[2025-04-03 11:02] LABS: ASPARTATE AMINOTRANSFERASE 25.0 U/L (15-37); CALCIUM, SERUM 10.4 mg/dL (8.5-10.1); CREATININE 1.7 mg/dL (0.6-1.3); PHOSPHORUS 3.9 mg/dL (2.5-4.9); SODIUM SERUM 142.0 mmol/L (136-145); TOTAL PROTEIN, SERUM 8.2 g/dL (6.4-8.2)
[2025-04-03 11:22] LABS: UREA NITROGEN, BLOOD 95.0 mg/dL (7-18)
[2025-04-03 12:00] VITALS: BP 123/47; TEMP 98.8; O2SAT 100
[2025-04-03] MEDS: IV D5/ 0.9% NACL 1,000 ML IV PRN (15:44)
[2025-04-03 16:00] VITALS: BP 100/45; TEMP 99; O2SAT 97
[2025-04-03 20:00] VITALS: BP 107/38; TEMP 99.1; O2SAT 100
[2025-04-04] VITALS: BP 135/56; TEMP 98.2; O2SAT 100
[2025-04-04 04:00] VITALS: BP 155/54; TEMP 98.4; O2SAT 99
[2025-04-04 06:42] LABS: PLATELET COUNT (AUTO) 446 K/uL (150-450); RED BLOOD CELL COUNT(AUTO) 2.96 MIL/uL (4.0-5.2); RED CELL DISTRIBUTION WIDTH 24.8 % (11.5-15.0); WHITE BLOOD COUNT (AUTO) 18.2 K/uL (4.3-11.0)
[2025-04-04 08:00] VITALS: BP 140/50; TEMP 98.4; O2SAT 100
[2025-04-04 10:54] LABS: CALCIUM, SERUM 10.6 mg/dL (8.5-10.1); CREATININE 1.7 mg/dL (0.6-1.3); SODIUM SERUM 144.0 mmol/L (136-145)
[2025-04-04 11:01] LABS: UREA NITROGEN, BLOOD 96.0 mg/dL (7-18)
[2025-04-04 12:00] VITALS: BP 105/49; TEMP 98.8; O2SAT 100
[2025-04-04 16:00] VITALS: BP 125/70; TEMP 98.6; O2SAT 100
[2025-04-04 20:00] VITALS: BP 162/42; TEMP 98.4; O2SAT 100
[2025-04-04] MEDS: MEROPENEM 1 G in IV NS 0.9% 100 ML IV SCH (20:48)
[2025-04-05] VITALS: BP 153/55; TEMP 98.2; O2SAT 100
[2025-04-05 04:00] VITALS: BP 156/56; TEMP 99.3; O2SAT 100
[2025-04-05 06:36] LABS: CALCIUM, SERUM 9.7 mg/dL (8.5-10.1); CREATININE 1.4 mg/dL (0.6-1.3); PHOSPHORUS 2.6 mg/dL (2.5-4.9); SODIUM SERUM 146.0 mmol/L (136-145); UREA NITROGEN, BLOOD 74.0 mg/dL (7-18)
[2025-04-05 08:00] VITALS: BP 164/61; TEMP 99; O2SAT 100
[2025-04-05] MEDS ORDERED: CEFEPIME 2 GM in IV D5W 100 ML IV SCH (09:00)
[2025-04-05] MEDS: FREE WATER VIA TUBE FEEDING GT SCH (11:29)
[2025-04-05] MEDS: ACETAMINOPHEN 325 MG TABLET PO PRN (11:44)
[2025-04-05] MEDS: hydrALAZINE HCL IV 20 MG VIAL IV PRN (11:44)
[2025-04-05 11:55] LABS: PLATELET COUNT (AUTO) 404 K/uL (150-450); RED BLOOD CELL COUNT(AUTO) 3.02 MIL/uL (4.0-5.2); RED CELL DISTRIBUTION WIDTH 25.9 % (11.5-15.0); WHITE BLOOD COUNT (AUTO) 12.5 K/uL (4.3-11.0)
[2025-04-05 12:00] VITALS: BP 175/60; TEMP 99.5; O2SAT 100
[2025-04-05] MEDS ORDERED: MERO1PIG IV (14:22)
[2025-04-05 16:00] VITALS: BP 147/67; TEMP 99.3; O2SAT 100
[2025-04-05 20:00] VITALS: BP 126/52; TEMP 97.9; O2SAT 100
== END 2025-04-05 22:30 | DRG 870 ==
LOC: ER 16:13 → TELE1 19:30
PROVIDERS: ADMIT Internal Medicine; ATTEND Nurse Practitioner Acute Care
PROC: 5A1955Z Respiratory Ventilation, Greater than 96 Consecutive Hours (ICD-10-PCS; principal; 2025-03-23)
PROC: 30233N1 Transfusion of Nonautologous Red Blood Cells into Peripheral Vein, Percutaneous Approach (ICD-10-PCS; 2025-03-23)
DX: A41.9 Sepsis, unspecified organism (principal); N17.0 Acute kidney failure with tubular necrosis; N39.0 Urinary tract infection, site not specified; I13.0 Hypertensive heart and chronic kidney disease with heart failure and stage 1 through stage 4 chronic kidney disease, or unspecified chronic kidney disease; J96.10 Chronic respiratory failure, unspecified whether with hypoxia or hypercapnia; Z99.11 Dependence on respirator [ventilator] status; G93.49 Other encephalopathy; E87.0 Hyperosmolality and hypernatremia; R65.20 Severe sepsis without septic shock; D64.9 Anemia, unspecified; E86.0 Dehydration; I25.10 Atherosclerotic heart disease of native coronary artery without angina pectoris; N18.9 Chronic kidney disease, unspecified; I50.9 Heart failure, unspecified; B96.4 Proteus (mirabilis) (morganii) as the cause of diseases classified elsewhere; D75.838 Other thrombocytosis; E11.22 Type 2 diabetes mellitus with diabetic chronic kidney disease; E78.5 Hyperlipidemia, unspecified; I48.91 Unspecified atrial fibrillation; R13.10 Dysphagia, unspecified; Z88.0 Allergy status to penicillin; Z89.611 Acquired absence of right leg above knee; Z93.0 Tracheostomy status; Z93.1 Gastrostomy status; Z79.899 Other long term (current) drug therapy; N18.32 Chronic kidney disease, stage 3b; Z74.01 Bed confinement status; E03.9 Hypothyroidism, unspecified; E83.9 Disorder of mineral metabolism, unspecified; L89.620 Pressure ulcer of left heel, unstageable; E11.51 Type 2 diabetes mellitus with diabetic peripheral angiopathy without gangrene; D75.839 Thrombocytosis, unspecified; L89.326 Pressure-induced deep tissue damage of left buttock; L89.316 Pressure-induced deep tissue damage of right buttock; L89.156 Pressure-induced deep tissue damage of sacral region; L98.8 Other specified disorders of the skin and subcutaneous tissue; B96.1 Klebsiella pneumoniae [K. pneumoniae] as the cause of diseases classified elsewhere; B96.5 Pseudomonas (aeruginosa) (mallei) (pseudomallei) as the cause of diseases classified elsewhere; I35.0 Nonrheumatic aortic (valve) stenosis
CPT/HCPCS: 31720; 36415; 71045-TC; 76770-TC; 80048-TC; 80053-TC; 80076-TC; 81001; 82272-TC; 82550-TC; 82962-TC; 83605-TC; 83735-TC; 83970; 84100-TC; 84155; 84165; 85025-TC; 85027-TC; 85730-TC; 86850-TC; 87040-TC; 87081-TC; 87086-TC; 87186-TC; 93926-TC; 94002-TC; 94003-TC; 94760-TC; 94761-TC; 94762-TC; 94799-TC; 99082-TC; A4223; A4623; A6213; A7526; G0378; J0360; J0692; J1815; J1956; J2185; J2470; J3490; J7030; J7040; J7042; J7050; J7060; P9016

== ENCOUNTER 2025-05-22 12:14 | Inpatient (IN) | payer MEDICARE, OTHER ==
[~2025-05-22] VITALS: Ht 162.6 cm; Wt 65.3 kg
[~2025-05-22 12:14] MED LIST changes: +ACET325T53 GT; +AMIN30LI66 GT; +ASCO500T10 GT; +BISA10SU11 RC; -CALC-261 PO; +CHLO473M5 PO; +DOCU100T2 GT; -ESCI10TA PO; +INSU100V3 SQ; +IPRA4AER IH; +LEVO125T8 GT; -LEVO88TA5 PO; +MAGN400O6 GT; +MERO1PIG IV; +NA P133E RC; +NEOM28.37 TP; -NITR100C15 PO; +NUT.237L30 GT; -OMEP20CA15 PO; +PANT40SU2 GT; +SOD62.5V IV; +VITAMIN D GT; +ZINC50TA69 GT
[2025-05-22] MEDS: ACETAMINOPHEN 650 MG/SUPP.RECT RC ONE (13:00)
[2025-05-22 13:02] LABS: PLATELET COUNT (AUTO) 479 K/uL (150-450); RED BLOOD CELL COUNT(AUTO) 2.53 MIL/uL (4.0-5.2); RED CELL DISTRIBUTION WIDTH 24.1 % (11.5-15.0); WHITE BLOOD COUNT (AUTO) 21.4 K/uL (4.3-11.0)
[2025-05-22 13:12] LABS: INR 1.0 (0.91-1.10)
[2025-05-22 13:17] LABS: CALCIUM, SERUM 9.6 mg/dL (8.5-10.1); CREATININE 2.3 mg/dL (0.6-1.3); SODIUM SERUM 136.0 mmol/L (136-145); UREA NITROGEN, BLOOD 62.0 mg/dL (7-18)
[2025-05-22 13:22] LABS: LACTIC ACID 1.8 mmol/L (0.4-2.0)
[2025-05-22] MEDS: IV NS 0.9% 1,000 ML BAG IV ONE (13:24)
[2025-05-22] MEDS: CEFEPIME 1 GM in IV D5W 50 ML IV ONE (13:24)
[2025-05-22] MEDS: PANTOPRAZOLE 80 MG in IV NS 0.9% 500 ML IV ONE (13:28)
[2025-05-22 13:29] LABS: ASPARTATE AMINOTRANSFERASE 19.0 U/L (15-37); TOTAL PROTEIN, SERUM 8.0 g/dL (6.4-8.2)
[2025-05-22] MEDS: PANTOPRAZOLE 40 MG VIAL IV ONE ×2 (13:51→13:56)
[2025-05-22] MEDS ORDERED: PANTOPRAZOLE 40 MG VIAL ONE (13:52)
[2025-05-22] MEDS: VANCOMYCIN 1 GM in IV D5W 250 ML IV ONE (13:56)
[2025-05-22] MEDS ORDERED: CHOL100062 GT (14:03)
[2025-05-22] MEDS ORDERED: OMEP40CA21 GT (14:04)
[2025-05-22] MEDS ORDERED: COLL30OI TP (14:04)
[2025-05-22] MEDS ORDERED: ACET-2030 GT (14:04)
[2025-05-22] MEDS ORDERED: LEVO88TA5 GT (14:04)
[2025-05-22] MEDS ORDERED: CILO100T GT (14:04)
[2025-05-22] MEDS ORDERED: MULT-213 GT (14:04)
[2025-05-22] MEDS ORDERED: CALC-1321 GT (14:04)
[2025-05-22] MEDS ORDERED: ACET-868 GT (14:04)
[2025-05-22 14:42] LABS: APPEARANCE,URINE CLOUDY (CLEAR)
[2025-05-22 14:45] LABS: BLOOD, URINE TRACE Ery/uL (NEGATIVE); UGLUCOSE NEGATIVE (NEGATIVE)
[2025-05-22 14:46] LABS: LEUKOCYTE ESTERASE ,URINE LARGE (NEGATIVE); NITRITE, URINE NEGATIVE (NEGATIVE)
[2025-05-22] MEDS ORDERED: DOSING PER PHARMACY-VANCOMYCIN IV XX PRN (15:30)
[2025-05-22] MEDS ORDERED: ONDANSETRON HCL/PF 4 MG/2 ML VIAL IVP PRN (15:30)
[2025-05-22] MEDS ORDERED: Z GUARD REMEDY 4 OZ OINT TP PRN (15:30)
[2025-05-22] MEDS ORDERED: ZOLPIDEM TARTRATE 5 MG TABLET PO PRN (15:30)
[2025-05-22] MEDS ORDERED: MAG HYDROX/AL HYDROX/SIMETH 30 ML UDC PO PRN (15:30)
[2025-05-22] MEDS ORDERED: DOSING PER PHARMACY-CEFEPIME IVPB XX PRN (15:30)
[2025-05-22] MEDS ORDERED: ACETAMINOPHEN 325 MG TABLET PO PRN (15:30)
[2025-05-22] MEDS ORDERED: MAGNESIUM HYDROXIDE 30 ML UDC PO PRN (15:30)
[2025-05-22 15:46] LABS: ADD URINE CULTURE YES; SQUAMOUS EPITHELIAL CELL,UR Moderate /HPF (None Seen); URINE AMORPHOUS PHOSPHATES Few /HPF (None Seen)
[2025-05-22 15:47] LABS: CALCIUM OXALATE CRYSTALS,UR Few /HPF (None Seen)
[2025-05-22 17:10] VITALS: BP 114/59; TEMP 97.5; O2SAT 99
[2025-05-22] MEDS: IV NS 0.9% 1,000 ML IV PRN (17:31)
[2025-05-22] MEDS: VANCOMYCIN 500 MG in IV D5W 100ml IV ONE (17:52)
[2025-05-22 20:00] VITALS: BP 86/43; TEMP 98.8; O2SAT 96
[2025-05-22 20:45] LABS: OCCULT BLOOD STOOL NEGATIVE (NEGATIVE)
[2025-05-22 21:48] VITALS: BP 111/49; TEMP 98.8; O2SAT 96
[2025-05-23] VITALS: BP 120/54; TEMP 100.8; O2SAT 100
[2025-05-23] MEDS: CEFEPIME 2 GM in IV D5W 100 ML IV SCH (02:04)
[2025-05-23] MEDS: ACETAMINOPHEN 650 MG/SUPP.RECT RC PRN (02:04)
[2025-05-23 04:00] VITALS: BP 119/55; TEMP 100.9; O2SAT 98
[2025-05-23] MEDS: PANTOPRAZOLE 40 MG TABLET.DR PO SCH (07:30)
[2025-05-23 08:00] VITALS: BP 168/68; TEMP 100.4; O2SAT 98
[2025-05-23 08:06] LABS: PLATELET COUNT (AUTO) 386 K/uL (150-450); RED BLOOD CELL COUNT(AUTO) 2.41 MIL/uL (4.0-5.2); RED CELL DISTRIBUTION WIDTH 24.7 % (11.5-15.0); WHITE BLOOD COUNT (AUTO) 16.1 K/uL (4.3-11.0)
[2025-05-23 08:13] LABS: CALCIUM, SERUM 8.8 mg/dL (8.5-10.1); CREATININE 1.8 mg/dL (0.6-1.3); PHOSPHORUS 2.6 mg/dL (2.5-4.9); SODIUM SERUM 143.0 mmol/L (136-145); UREA NITROGEN, BLOOD 49.0 mg/dL (7-18)
[2025-05-23 12:00] VITALS: BP 165/71; TEMP 98.6; O2SAT 100
[2025-05-23] MEDS: POTASSIUM CL. PREMIX PERIPHER. 50 ML IV SCH (12:14)
[2025-05-23] MEDS: GLUCERNA 1.2 1,000 ML BOTTLE NG PRN (13:20)
[2025-05-23] MEDS ORDERED: NA PHOS,M-B/NA PHOS,DI-BA 1 EA ENEMA RC PRN (13:30)
[2025-05-23] MEDS ORDERED: BISACODYL SUPP (10 MG) 10 MG/SUPP.RECT SUPP.RECT RC PRN (13:30)
[2025-05-23] MEDS: ASCORBIC ACID 500 MG TABLET GT SCH (13:59)
[2025-05-23] MEDS: AMLODIPINE BESYLATE 5 MG TABLET GT SCH (13:59)
[2025-05-23] MEDS ORDERED: THERAHONEY GEL 1.5 OZ TUBE TP SCH (14:00)
[2025-05-23 16:00] VITALS: BP 158/77; TEMP 97.9; O2SAT 99
[2025-05-23] MEDS: GABAPENTIN 100 MG CAPSULE GT SCH (16:44)
[2025-05-23] MEDS: MEMANTINE HCL 5 MG TABLET PO SCH (16:44)
[2025-05-23] MEDS: VANCOMYCIN 750 MG in IV D5W 250 ML IV SCH (16:46)
[2025-05-23 20:00] VITALS: BP 154/63; TEMP 98.2; O2SAT 100
[2025-05-23] MEDS: ATORVASTATIN 40 MG TABLET GT SCH (21:19)
[2025-05-24] VITALS (10 sets, daily range): BP systolic 102–175; BP diastolic 48–80; TEMP 97.7–99; O2SAT 98–100
[2025-05-24] MEDS ORDERED: VANCOMYCIN 750 MG in IV D5W 250 ML IV SCH (05:00)
[2025-05-24 08:06] LABS: CALCIUM, SERUM 8.8 mg/dL (8.5-10.1); CREATININE 1.6 mg/dL (0.6-1.3); PHOSPHORUS 2.3 mg/dL (2.5-4.9); SODIUM SERUM 148.0 mmol/L (136-145); UREA NITROGEN, BLOOD 34.0 mg/dL (7-18)
[2025-05-24] MEDS: LEVOTHYROXINE SODIUM 88 MCG TABLET GT SCH (09:06)
[2025-05-24] MEDS: ZINC SULFATE 220 MG CAPSULE GT SCH (09:06)
[2025-05-24] MEDS: FERROUS SULFATE (325 MG) 325 MG/TAB TABLET GT SCH (09:07)
[2025-05-24] MEDS: MULTIVITAMINS,THERAGRAN 1 UDTAB TABLET GT SCH (09:07)
[2025-05-24] MEDS: CILOSTAZOL 100 MG TABLET GT SCH (09:33)
[2025-05-24 10:21] LABS: PLATELET COUNT (AUTO) 390 K/uL (150-450); RED BLOOD CELL COUNT(AUTO) 2.35 MIL/uL (4.0-5.2); RED CELL DISTRIBUTION WIDTH 23.6 % (11.5-15.0); WHITE BLOOD COUNT (AUTO) 12.3 K/uL (4.3-11.0)
[2025-05-24 14:33] LABS: EOSINOPHILS % (MANUAL) 6 % (0-4); LYMPHOCYTES % (MANUAL) 17 % (16-48); MONOCYTES % (MANUAL) 3 % (0-11.0); NEUTROPHILS % (MANUAL) 74 (42-76); PLATELET ESTIMATE ADEQUATE
[2025-05-24] MEDS: NEUTRA PHOS 1 POWD.PACKET NG ONE (16:43)
[2025-05-25] VITALS: BP 141/79; TEMP 98.3; O2SAT 98
[2025-05-25 04:00] VITALS: BP 138/76; TEMP 98.8; O2SAT 99
[2025-05-25] MEDS ORDERED: DEXTROSE 50%-WATER 50 ML DISP.SYRIN IV PRN (07:00)
[2025-05-25 07:58] LABS: PLATELET COUNT (AUTO) 389 K/uL (150-450); RED BLOOD CELL COUNT(AUTO) 2.85 MIL/uL (4.0-5.2); RED CELL DISTRIBUTION WIDTH 24.1 % (11.5-15.0); WHITE BLOOD COUNT (AUTO) 14.0 K/uL (4.3-11.0)
[2025-05-25 08:00] VITALS: BP 154/79; TEMP 99; O2SAT 99
[2025-05-25 08:02] LABS: CALCIUM, SERUM 8.5 mg/dL (8.5-10.1); CREATININE 1.5 mg/dL (0.6-1.3); SODIUM SERUM 149.0 mmol/L (136-145); UREA NITROGEN, BLOOD 27.0 mg/dL (7-18)
[2025-05-25] MEDS: POTASSIUM CL. PREMIX PERIPHER. 50 ML IV SCH (10:45)
[2025-05-25] MEDS: BLOOD SUGAR DIAGNOSTIC 1 EACH STRIP IN SCH (11:25)
[2025-05-25 12:00] VITALS: BP 150/58; TEMP 99; O2SAT 98
[2025-05-25] MEDS ORDERED: DOSING PER PHARMACY-CEFEPIME IVPB XX PRN (14:00)
[2025-05-25] MEDS ORDERED: CEFEPIME 2 GM in IV D5W 100 ML IV SCH (14:00)
[2025-05-25 16:00] VITALS: BP 140/73; TEMP 99.5; O2SAT 98
[2025-05-25 20:00] VITALS: BP 159/70; TEMP 99.9; O2SAT 99
[2025-05-26] VITALS: BP 133/66; TEMP 98.9; O2SAT 100
[2025-05-26] MEDS: INSULIN REGULAR, HUMAN 100 UNIT/ML 3 ML VIAL SQ PRN (00:28)
[2025-05-26] MEDS: CEFEPIME 2 GM in IV D5W 100 ML IV SCH (02:50)
[2025-05-26 04:00] VITALS: BP 140/70; TEMP 90; O2SAT 99
[2025-05-26 08:00] VITALS: BP 154/61; TEMP 99.3; O2SAT 99
[2025-05-26 08:01] LABS: PLATELET COUNT (AUTO) 364 K/uL (150-450); RED BLOOD CELL COUNT(AUTO) 2.79 MIL/uL (4.0-5.2); RED CELL DISTRIBUTION WIDTH 23.8 % (11.5-15.0); WHITE BLOOD COUNT (AUTO) 12.7 K/uL (4.3-11.0)
[2025-05-26 08:04] LABS: CALCIUM, SERUM 8.5 mg/dL (8.5-10.1); CREATININE 1.3 mg/dL (0.6-1.3); PHOSPHORUS 2.6 mg/dL (2.5-4.9); SODIUM SERUM 149.0 mmol/L (136-145); UREA NITROGEN, BLOOD 21.0 mg/dL (7-18)
[2025-05-26 12:00] VITALS: BP 158/74; TEMP 99.1; O2SAT 99
[2025-05-26] MEDS ORDERED: GLUCERNA 1.2 1,000 ML BOTTLE NG PRN (13:00)
[2025-05-26] MEDS ORDERED: HYDR-4076 PO (13:08)
[2025-05-26] MEDS ORDERED: CEFE2FRO IV (13:08)
[2025-05-26 13:41] VITALS: BP 160/80
[2025-05-26] MEDS: PROSOURCE / PROSTAT (PYXIS) 30 ML UDC GT SCH (13:41)
== END 2025-05-26 16:23 | DRG 698 ==
LOC: ER 12:20 → MEDSG1 15:07 → TELE1 19:40
PROVIDERS: ATTEND Nurse Practitioner Acute Care
PROC: 5A1955Z Respiratory Ventilation, Greater than 96 Consecutive Hours (ICD-10-PCS; principal; 2025-05-22)
PROC: 30233N1 Transfusion of Nonautologous Red Blood Cells into Peripheral Vein, Percutaneous Approach (ICD-10-PCS; 2025-05-24)
DX: T83.511A Infection and inflammatory reaction due to indwelling urethral catheter, initial encounter (principal); A41.9 Sepsis, unspecified organism; L89.624 Pressure ulcer of left heel, stage 4; G92.8 Other toxic encephalopathy; N17.0 Acute kidney failure with tubular necrosis; R53.2 Functional quadriplegia; I13.0 Hypertensive heart and chronic kidney disease with heart failure and stage 1 through stage 4 chronic kidney disease, or unspecified chronic kidney disease; Z99.11 Dependence on respirator [ventilator] status; J96.11 Chronic respiratory failure with hypoxia; Y84.6 Urinary catheterization as the cause of abnormal reaction of the patient, or of later complication, without mention of misadventure at the time of the procedure; Y92.129 Unspecified place in nursing home as the place of occurrence of the external cause; Y73.8 Miscellaneous gastroenterology and urology devices associated with adverse incidents, not elsewhere classified; N39.0 Urinary tract infection, site not specified; N18.9 Chronic kidney disease, unspecified; E11.51 Type 2 diabetes mellitus with diabetic peripheral angiopathy without gangrene; E11.22 Type 2 diabetes mellitus with diabetic chronic kidney disease; D64.9 Anemia, unspecified; D75.839 Thrombocytosis, unspecified; E03.9 Hypothyroidism, unspecified; E78.5 Hyperlipidemia, unspecified; E86.0 Dehydration; I25.10 Atherosclerotic heart disease of native coronary artery without angina pectoris; I48.91 Unspecified atrial fibrillation; R13.10 Dysphagia, unspecified; Z88.2 Allergy status to sulfonamides; Z88.0 Allergy status to penicillin; Z93.1 Gastrostomy status; Z20.822 Contact with and (suspected) exposure to COVID-19; B96.5 Pseudomonas (aeruginosa) (mallei) (pseudomallei) as the cause of diseases classified elsewhere; F03.90 Unspecified dementia, unspecified severity, without behavioral disturbance, psychotic disturbance, mood disturbance, and anxiety; L98.8 Other specified disorders of the skin and subcutaneous tissue; L89.326 Pressure-induced deep tissue damage of left buttock; L89.316 Pressure-induced deep tissue damage of right buttock; L89.156 Pressure-induced deep tissue damage of sacral region; I35.0 Nonrheumatic aortic (valve) stenosis; I50.9 Heart failure, unspecified; J44.9 Chronic obstructive pulmonary disease, unspecified; M81.0 Age-related osteoporosis without current pathological fracture; Z79.02 Long term (current) use of antithrombotics/antiplatelets; Z93.0 Tracheostomy status
CPT/HCPCS: 31720; 36415; 71045-TC; 80048-TC; 80076-TC; 80202-TC; 81001; 82272-TC; 82962-TC; 83605-TC; 83735-TC; 84100-TC; 85025-TC; 85027-TC; 85730-TC; 86850-TC; 87040-TC; 87070-TC; 87081-TC; 87086-TC; 87186-TC; 87205-TC; 94003-TC; 94760-TC; 94762-TC; 94799-TC; A4223; A6213; G0378; J0692; J1815; J2470; J3373; J3374; J3480; J7030; J7040; J7050; J7060; P9016